=== PATIENT | male | born 1985 | race Caucasian/White ===

== ENCOUNTER 2016-09-14 12:32 | Observation (INO) | payer MEDICAID, SELFPAY ==
[2016-09-14 12:41] VITALS: BMI 27.1
[2016-09-14 13:08] VITALS: BP 131/78; PULSE 78; RESP 18; TEMP 36.8
--- NOTE | 2016-09-14 13:15 | PCM.HP.STD ---
Problem List (1) Heroin abuse Status: Chronic (2) Hepatitis C Status: Chronic Qualifiers: Viral hepatitis chronicity: unspecified Hepatic coma status: without hepatic coma Qualified Code(s): B19.20 - Unspecified viral hepatitis C without hepatic coma History of Present Illness Date of Admission: 09/14/16 Chief Complaint: Acute opiate withdrawal The patient is a 31 y/o M w/ PMHx: Polysubstance abuse, most recently notes transitioned to only Heroine IV with prior Suboxone program enrollment; however, he relapsed, last dose 09/07/16 (prior other usages, including cocaine), Hepatitis C who presents to the [facility] on 09/14/16 w/ noted opiate withdrawal onset starting this AM following last dose evening prior at 8 pm with abdominal pain/cramping, generalized body aches and pains, rhinorrhea, piloerection, fatigue, restless leg, sweating, yawning. Patient interested in attaining clean status. He notes normal usage is 0.5 gm per day heroin usage. He additionally notes he had appt for upcoming root canal and was supposed to be taking amoxicillin but had not filled his rx. Discussed and advised pushing intervention back if possible. Past Medical History Past Medical History (Chronic Problems): Chronic Problems Hepatitis C (Chronic) Heroin abuse (Chronic) Allergies codeine Allergy (Verified 09/14/16 12:56) Hives Home Medications: Ambulatory Orders Medication Instructions Recorded No Known/Unobtainable [No Known 09/14/16 Home Medications] Surgical History: no surgical history Psychiatric History: No pertinent psych hx Lives: Spouse/ Significant Other Smoking Status: Never smoker Tobacco Use: Non-smoker Alcohol: None Drugs: Heroin - *Family History Maternal History Items: No pertinent history Paternal History Items: No pertinent history Review of Systems Constitutional: Reports: Anorexia, Malaise, Weakness, Fatigue. Denies: Chills, Fever, Weight Change HEENT: Denies: Head Aches, Sinus Congestion, Sinus Drainage Cardiovascular: Denies: Chest Pain, Palpitations Respiratory: Denies: Cough, Shortness of breath at rest, Sputum production Gastrointestinal: Reports: Abdominal Pain, Nausea. Denies: Vomiting Genitourinary: Denies: Dysuria Musculoskeletal: Reports: Back Pain, Leg Pain, Muscle pain, Neck Pain, Shoulder Pain. Denies: Joint Pain, Joint Tenderness Skin: Denies: Rash, Wounds Neurological: Denies: Numbness, Tingling, Focal weakness Psychiatric: Denies: Anxiety, Depression, Homicidal Ideations, Suicidal Ideations Hematologic/ Lymphatic: Denies: Easy Bruising, Easy Bleeding VTE Information - Inpt Only VTE Present on Admission: No VTE Mechan Device Prophylaxis: SCD's VTE Pharm Prophylaxis ordered?: No Reason prophylaxis not ordered:: Treatment Not Indicated Subjective: Seated upright in bed, currently symptomatic from withdrawal. Objective: Physical Examination: General: awake, alert, oriented x 3 and cooperative, seated upright in bed, mildly agitated. Skin: normal color, turgor, no icterus, cyanosis. HEENT: AT/NC, EOMI, PERRLA, dry MM, no carotid bruits or JVD noted. Lungs: CTA bilaterally, moderate effort, moderate decrease BL bases, no rales, ronchi or wheezing. Heart: Regular rate and rhythm; no gallop, rub audible. Abdomen: soft, mild generalized grimace w/ palpation, ND, hyperactive BS, + HM. Extremities: no cyanosis, clubbing, or edema. Neurological: patient awake, alert, oriented x 3; cognitive function intact; pupils equally reactive to light and accomodation; cranial nerves II-XII grossly normal, moving all 4 extremities, no focal deficits, strength mildly globally decreased secondary to acute withdrawal presentation. Psychiatric: affect appears mildly agitated, no acute evidence of depressive or anxiety feelings. - Physical Exam Vital Signs Temp Pulse Resp BP Pulse Ox 98.3 F 78 18 131/78 09/14/16 13:08 09/14/16 13:08 09/14/16 13:08 09/14/16 13:08 Weight: 210 lb 15.718 oz Body Mass Index (BMI) 27.1 Assessment/Plan The patient is a 31 y/o M w/ PMHx: Polysubstance abuse, most recently notes transitioned to only Heroine IV with prior Suboxone program enrollment; however, he relapsed, last dose 09/07/16 (prior other usages, including cocaine), Hepatitis C who presents to the [facility] on 09/14/16 w/ acute opiate withdrawal onset. (1) Acute Opiate Withdrawal: Will admit to [place], obtain routine labs including CBC, CMP, urine for drug screen, urinalysis, serum lipase, routine EKG and will initiate and continue on [facility] service protocol with tapering course of Subutex, as needed Seroquel, Librium, Sinemet, Catapres, Bentyl, Vistaril, IV fluids, IV antiemetics, Tylenol as needed for pain. Once patient clinically improved and completion of taper nearing will plan [facility] assistance for transition to next level of rehabilitation care. (2) Hepatitis C: Notes recent dx 2017, unclear if additional, will obtain Hepatitis C panel to assure no co-infection. Discussed that patient is not a candidate for hep C treatment currently as needs to be clean, sober x 6 months w/ documented attendance NA or AA meetings, counseling and ongoing negative drug screens. Once appropriate GI, ID to initiate. HIV requested also, pending. (3) DVT Prophylaxis: SCDs, low risk, ambulation.
--- NOTE | 2016-09-14 13:21 | EKG12_ITS ---
Test Reason : Blood Pressure : / mmHG Vent. Rate : 069 BPM Atrial Rate : 069 BPM P-R Int : 168 ms QRS Dur : 094 ms QT Int : 404 ms P-R-T Axes : 042 026 039 degrees QTc Int : 432 ms Normal sinus rhythm with sinus arrhythmia Normal ECG Confirmed by TRACI HERRERA, FRANCISCO ([id number]), design editor STEVIE STANLEY ([id number]) on 09/28/2016 1:24:24 PM Referred By: LEEROY Confirmed By:FRANCISCO AVILES MD
--- NOTE | 2016-09-14 13:28 | HP.PCM_ITS ---
Problem List (1) Heroin abuse Status: Chronic (2) Hepatitis C Status: Chronic Qualifiers: Viral hepatitis chronicity: unspecified Hepatic coma status: without hepatic coma Qualified Code(s): B19.20 - Unspecified viral hepatitis C without hepatic coma History of Present Illness Date of Admission: 09/14/16 Chief Complaint: Acute opiate withdrawal The patient is a 31 y/o M w/ PMHx: Polysubstance abuse, most recently notes transitioned to only Heroine IV with prior Suboxone program enrollment; however , he relapsed, last dose 09/07/16 (prior other usages, including cocaine), Hepatitis C who presents to the [facility] on 09/14/16 w/ noted opiate withdrawal onset starting this AM following last dose evening prior at 8 pm with abdominal pain/ cramping, generalized body aches and pains, rhinorrhea, piloerection, fatigue, restless leg, sweating, yawning. Patient interested in attaining clean status. He notes normal usage is 0.5 gm per day heroin usage. He additionally notes he had appt for upcoming root canal and was supposed to be taking amoxicillin but had not filled his rx. Discussed and advised pushing intervention back if possible. Past Medical History Past Medical History (Chronic Problems): Chronic Problems Hepatitis C (Chronic) Heroin abuse (Chronic) Allergies codeine Allergy (Verified 09/14/16 12:56) Hives Home Medications: Ambulatory Orders Medication Instructions Recorded No Known/Unobtainable [No Known 09/14/16 Home Medications] Surgical History: no surgical history Psychiatric History: No pertinent psych hx Lives: Spouse/ Significant Other Smoking Status: Never smoker Tobacco Use: Non-smoker Alcohol: None Drugs: Heroin - *Family History Maternal History Items: No pertinent history Paternal History Items: No pertinent history Review of Systems Constitutional: Reports: Anorexia, Malaise, Weakness, Fatigue. Denies: Chills, Fever, Weight Change HEENT: Denies: Head Aches, Sinus Congestion, Sinus Drainage Cardiovascular: Denies: Chest Pain, Palpitations Respiratory: Denies: Cough, Shortness of breath at rest, Sputum production Gastrointestinal: Reports: Abdominal Pain, Nausea. Denies: Vomiting Genitourinary: Denies: Dysuria Musculoskeletal: Reports: Back Pain, Leg Pain, Muscle pain, Neck Pain, Shoulder Pain. Denies: Joint Pain, Joint Tenderness Skin: Denies: Rash, Wounds Neurological: Denies: Numbness, Tingling, Focal weakness Psychiatric: Denies: Anxiety, Depression, Homicidal Ideations, Suicidal Ideations Hematologic/ Lymphatic: Denies: Easy Bruising, Easy Bleeding VTE Information - Inpt Only VTE Present on Admission: No VTE Mechan Device Prophylaxis: SCD's VTE Pharm Prophylaxis ordered?: No Reason prophylaxis not ordered:: Treatment Not Indicated Subjective: Seated upright in bed, currently symptomatic from withdrawal. Objective: Physical Examination: General: awake, alert, oriented x 3 and cooperative, seated upright in bed, mildly agitated. Skin: normal color, turgor, no icterus, cyanosis. HEENT: AT/NC, EOMI, PERRLA, dry MM, no carotid bruits or JVD noted. Lungs: CTA bilaterally, moderate effort, moderate decrease BL bases, no rales, ronchi or wheezing. Heart: Regular rate and rhythm; no gallop, rub audible. Abdomen: soft, mild generalized grimace w/ palpation, ND, hyperactive BS, + HM. Extremities: no cyanosis, clubbing, or edema. Neurological: patient awake, alert, oriented x 3; cognitive function intact; pupils equally reactive to light and accomodation; cranial nerves II-XII grossly normal, moving all 4 extremities, no focal deficits, strength mildly globally decreased secondary to acute withdrawal presentation. Psychiatric: affect appears mildly agitated, no acute evidence of depressive or anxiety feelings. - Physical Exam Vital Signs Temp Pulse Resp BP Pulse Ox 98.3 F 78 18 131/78 09/14/16 13:08 09/14/16 13:08 09/14/16 13:08 09/14/16 13:08 Weight: 210 lb 15.718 oz Body Mass Index (BMI) 27.1 Assessment/Plan The patient is a 31 y/o M w/ PMHx: Polysubstance abuse, most recently notes transitioned to only Heroine IV with prior Suboxone program enrollment; however , he relapsed, last dose 09/07/16 (prior other usages, including cocaine), Hepatitis C who presents to the [facility] on 09/14/16 w/ acute opiate withdrawal onset. (1) Acute Opiate Withdrawal: Will admit to [place], obtain routine labs including CBC , CMP, urine for drug screen, urinalysis, serum lipase, routine EKG and will initiate and continue on [facility] service protocol with tapering course of Subutex, as needed Seroquel, Librium, Sinemet, Catapres, Bentyl, Vistaril, IV fluids, IV antiemetics, Tylenol as needed for pain. Once patient clinically improved and completion of taper nearing will plan [facility] assistance for transition to next level of rehabilitation care. (2) Hepatitis C: Notes recent dx 2017, unclear if additional, will obtain Hepatitis C panel to assure no co-infection. Discussed that patient is not a candidate for hep C treatment currently as needs to be clean, sober x 6 months w / documented attendance NA or AA meetings, counseling and ongoing negative drug screens. Once appropriate GI, ID to initiate. HIV requested also, pending. (3) DVT Prophylaxis: SCDs, low risk, ambulation.
[2016-09-14] MEDS: Buprenorphine HCl 2 MG TAB.SUBL SL ×2 (13:48→22:02)
[2016-09-14] MEDS: cloNIDine HCl 0.1 MG Tablet 0.2 MG PO (13:48)
[2016-09-14] MEDS: Ibuprofen 400 MG Tablet 800 MG PO (13:51)
[2016-09-14] MEDS: 0.9% Normal Saline 1,000 ML 125 ML IV (13:52)
[2016-09-14 14:00] VITALS: BP 131/78; PULSE 78; RESP 18; TEMP 36.8
[2016-09-14] MEDS: chlordiazePOXIDE 25 MG Capsule PO ×2 (14:14→22:02)
[2016-09-14 14:22] LABS: Absolute Lymphocyte Count 2.72 X10^3/ul (0.83-4.51); Absolute Neutrophil Count 2.8 X10^3/uL (2.0-7.7); Basophil# 0.05 X10^3/uL; Basophil% 0.8 % (0-1); Eosinophil# 0.28 X10^3/uL; Eosinophils% 4.5 % (0-5); Hematocrit 37.2 % (40-54); Hemoglobin 12.9 g/dl (13.0-16.5); Lymphocyte # 2.72 X10^3/ul (4.0); Lymphocyte % 43.7 % (19-41); Mean Corp Hgb Conc 34.7 g/gl (32-36); Mean Corpuscular Hgb 30.4 pg (27.0-32.0); Mean Corpuscular Volume 87.5 fL (80-94); Mean Platelet Vol. 10.2 fl (6.2-12.0); Monocyte# 0.36 X10^3/uL; Monocyte% 5.8 % (0-10); Neutrophil # 2.81 X10^3/uL (2.7-7.7); Platelet Count 201 K/mm3 (150-450); RBC Distribution Width CV 12.6 % (11.6-14.6); RBC Distribution Width SD 39.1 fl (35.1-43.9); Red Blood Count 4.25 M/mm3 (4.6-6.2); White Blood Count 6.2 K/mm3 (4.4-11.0)
[2016-09-14 14:28] LABS: Prothrombin Time (Protime)PT. 12.9 SECONDS (11.7-14.9)
[2016-09-14 14:34] LABS: AST(SGOT) 15 U/L (15-37); Alanine Aminotransfer ALT/SGPT 21 U/L (12-78); Albumin, Serum 3.9 g/dL (3.4-5.0); Alkaline Phosphatase 67 U/L (45-117); Anion Gap 3 (5-15); BUN 19 mg/dL (7-18); BUN/Creat Ratio 20.3 RATIO (10-20); Calcium,Total 9.1 mg/dL (8.5-10.1); Chloride 104 mmol/L (98-107); Creatinine, Serum 0.93 mg/dL (0.70-1.30); EST Glomerular Filtration Rate 99 mL/min (>60); Est Glom Filt Rate - Afr Amer 119 mL/min (>60); Estimated Creatinine Clearance 131.35 ml/min; Globulin 3.8 g/dL (2.3-3.5); Glucose 85 mg/dL (70-110); Lipase 114 U/L (73-393); Potassium 4.1 mmol/L (3.5-5.1); Protein, Total 7.7 g/dL (6.4-8.2); Sodium Level 138 mmol/L (136-145)
[2016-09-14 14:38] LABS: Alcohol, Blood (Medical)-Serum < 3.0 mg/dL
[2016-09-14 14:43] LABS: POSITIVE COUNT NO; POSITIVE DIFFERENTIAL NO; POSITIVE MORPHOLOGY NO
[2016-09-14 16:31] LABS: Bacteria 0 SEEN /hpf (None Seen); Squamous Epithelial Cells - UA 0 SEEN /hpf (0-5); White Blood Cells 0 SEEN /hpf (0-5)
[2016-09-14 16:40] LABS: Color, Urine Yellow (Yellow); Glucose, Dipstick Normal (Normal); Ketone-Dipstick Negative (Negative); Leukocyte Esterase-Dipstick Negative /ul (Negative); Nitrite-Dipstick Negative (Negative); Occult Blood-Urine Negative /ul (Negative); Protein-Dipstick 15 mg/dl (Negative); Specific Gravity, Urine 1.025 (1.002-1.030); Urine Bilirubin Dipstick Negative (Negative); Urine Clarity Clear (Clear); Urine Urobilinogen Normal (Normal)
[2016-09-14 17:16] LABS: Mucous, Urine 1+ /hpf (<or=2+); Red Blood Cells-Urine 0-5 SEEN /hpf (0-5)
[2016-09-14] MEDS: Ondansetron ODT 4 MG Tablet PO (17:27)
[2016-09-14] MEDS: Mag Hydrox/Al Hydrox/Simeth 30 ML UDC PO (17:34)
[2016-09-14 17:39] VITALS: BP 133/86; PULSE 68; RESP 16; TEMP 36.6
[2016-09-14] MEDS: cloNIDine HCl 0.1 MG Tablet PO (22:02)
[2016-09-14] MEDS: traZODone 50 MG Tablet PO (22:02)
[2016-09-14 22:04] VITALS: BP 115/80; PULSE 78; RESP 16; TEMP 36.6
[2016-09-15 01:20] LABS: Amphetamine Urine VISTA NEGATIVE (<1000 ng/mL); Barbiturate Urine VISTA NEGATIVE (< 200 ng/mL); Benzodiazepine Urine VISTA POSITIVE (< 200 ng/mL); Cocaine Urine VISTA NEGATIVE (< 300 ng/mL); Ecstacy Urine VISTA NEGATIVE (< 500 ng/mL); Methadone Urine VISTA NEGATIVE (< 300 ng/mL); PCP Urine VISTA NEGATIVE (< 25 ng/mL); THC Urine VISTA NEGATIVE (< 50 ng/mL); Vista UDS pH Range 8
[2016-09-15 02:00] VITALS: BP 119/86; PULSE 92; RESP 16; TEMP 36.3
[2016-09-15 06:00] VITALS: BP 110/74; PULSE 65; RESP 16; TEMP 36.4
[2016-09-15 06:08] LABS: HEPATITIS B SURFACE AG Negative (Negative); Hepatitis A AB, Total Negative (Negative); Hepatitis A IgM Antibody Negative (Negative); Hepatitis B Core AB IgM Negative (Negative); Hepatitis B Core Ab Total Positive (Negative); Hepatitis C Ab >11.0 s/co ratio (0.0-0.9)
[2016-09-15] MEDS: Buprenorphine HCl 2 MG TAB.SUBL SL ×3 (06:09→21:44)
[2016-09-15] MEDS: cloNIDine HCl 0.1 MG Tablet PO (06:09)
[2016-09-15] MEDS: QUEtiapine 25 MG Tablet PO (06:09)
--- NOTE | 2016-09-15 07:36 | PCM.PN.HOSP ---
Subjective: Patient with no acute events overnight per self and per nursing report. He notes that withdrawal symptoms have markedly improved with initiation of Subutex regimen. Toni pending hepatitis panel and HIV panel to which patient notes understanding. patient denies fevers, chills, nausea, emesis, abdominal pain, chest pain or dyspnea. Objective: Physical Examination: General: awake, alert, oriented x 3 and cooperative, seated upright in bed, calm appearing, notes withdrawal sxs controlled. Skin: normal color, turgor, no icterus, cyanosis. HEENT: AT/NC, EOMI, PERRLA, improved MMM. Lungs: CTA bilaterally, moderate effort, moderate decrease BL bases, no rales, ronchi or wheezing. Heart: Regular rate and rhythm; no gallop, rub audible. Abdomen: soft, NTTP, ND, normal BS. Extremities: no cyanosis, clubbing, or edema. Neurological: patient awake, alert, oriented x 3; cognitive function intact; pupils equally reactive to light and accomodation; cranial nerves II-XII grossly normal, moving all 4 extremities, no focal deficits, strength improved, still mildly globally decreased secondary to acute withdrawal presentation. Psychiatric: affect appears calm, no acute evidence of depressive or anxiety feelings. Vitals/I&O's: Vital Signs Temp Pulse Resp BP Pulse Ox 97.5 F 65 16 110/74 09/15/16 06:00 09/15/16 06:00 09/15/16 06:00 09/15/16 06:00 Oxygen Delivery Method Room Air Weight: 210 lb 15.718 oz Body Mass Index (BMI) 27.1 Intake and Output for Last 24 Hours 09/13/16 09/14/16 09/15/16 23:59 23:59 23:59 Intake Total 462 Balance 462 Laboratory Results 09/14/16 14:00: Hepatitis A IgM Ab Pending, Hepatitis A Ab Total Pending, Hep Bs Antigen Pending, Hep B Core Total Ab Pending, Hep B Core IgM Ab Pending, Hepatitis C Comment Pending 09/14/16 14:00: WBC 6.2, RBC 4.25 L, Hgb 12.9 L, Hct 37.2 L, MCV 87.5, MCH 30.4, MCHC 34.7, RDW 12.6, RDW Differential 39.1, Plt Count 201, MPV 10.2, Immature Gran % (Auto) 0.200, Neut % (Auto) 45.0 L, Lymph % (Auto) 43.7 H, [place] % (Auto) 5.8, Eos % (Auto) 4.5, Baso % (Auto) 0.8, Absolute Neuts (auto) 2.8, Absolute Lymphs (auto) 2.72, Total Counted Not Reportable 09/14/16 14:00: PT 12.9, INR 1.0 09/14/16 14:00: Sodium 138, Potassium 4.1, Chloride 104, Carbon Dioxide 31.0, Anion Gap 3 L, BUN 19 H, Creatinine 0.93, Estim Creat Clear Calc 131.35, Est GFR (MDRD) Af Amer 119, Est GFR (MDRD) Non-Af 99, BUN/Creatinine Ratio 20.3 H, Glucose 85, Calcium 9.1, Total Bilirubin 0.50, AST 15, ALT 21, Alkaline Phosphatase 67, Total Protein 7.7, Albumin 3.9, Globulin 3.8 H, Albumin/Globulin Ratio 1.0, Lipase 114 09/14/16 14:00: Ethyl Alcohol < 3.0 09/14/16 14:15: Urine Color Yellow, Urine Clarity Clear, Urine pH 5.0, Ur Specific [place] 1.025, Urine Protein 15 H, Urine Glucose (UA) Normal, Urine Ketones Negative, Urine Occult Blood Negative, Urine Nitrite Negative, Urine Bilirubin Negative, Urine Urobilinogen Normal, Ur Leukocyte Esterase Negative, Urine RBC 0-5 SEEN, Urine WBC 0 SEEN, Ur Squamous Epith Cells 0 SEEN, Urine Bacteria 0 SEEN, Urine Mucus 1+ 09/15/16 01:00: Urine Opiates Screen POSITIVE H, Urine Methadone Screen NEGATIVE, Ur Barbiturates Screen NEGATIVE, Ur Phencyclidine Scrn NEGATIVE, Ur Amphetamines Screen NEGATIVE, U Methamphetamin-MDMA NEGATIVE, U Benzodiazepines Scrn POSITIVE H, Urine Cocaine Screen NEGATIVE, U Cannabinoids Screen NEGATIVE, Ur Drug Screen Comment Current Medications Acetaminophen (Tylenol) 650 mg PO Q4H PRN PRN PRN Reason: Temp>99.1F Al Hydroxide/Mg Hydroxide (Mylanta Ii) 30 ml PO Q6H PRN PRN PRN Reason: dyspesia Last Admin: 09/14/16 17:34 Dose: 30 ml Bisacodyl (Dulcolax) 10 mg RECTAL DAILY PRN PRN Reason: Constipation Buprenorphine HCl (Buprenorphine Hcl) 4 mg SL Q8H [place] PRN Reason: Taper Stop: 09/17/16 17:59 Last Admin: 09/15/16 06:09 Dose: 4 mg Carbidopa/Levodopa (Sinemet) 1 tablet PO Q8H PRN PRN PRN Reason: RESTLESSNESS Chlordiazepoxide (Librium) 25 mg PO Q6H PRN PRN PRN Reason: Mod-Sev Anxiety (score 2-3/3) Last Admin: 09/14/16 22:02 Dose: 25 mg Clonidine (Catapres) 0.1 mg PO Q2H PRN PRN Reason: Hot/Cold Sweats or Anxiety Last Admin: 09/15/16 06:09 Dose: 0.1 mg Dicyclomine HCl (Bentyl) 20 mg PO Q6H PRN PRN PRN Reason: Abdomnial Discomfort Folic Acid (Folic Acid) 1 mg PO DAILY@0800 [facility] Hydroxyzine Pamoate (Vistaril) 50 mg PO Q6H PRN PRN PRN Reason: Mild Anxiety (score 1/3) Last Admin: 09/14/16 17:28 Dose: 50 mg Ibuprofen (Motrin) 800 mg PO Q8H PRN PRN PRN Reason: Mild-Moderate Pain (1-5/10) Last Admin: 09/14/16 13:51 Dose: 800 mg Loperamide HCl (Imodium) 2 - 4 mg PO UD PRN PRN Reason: LOOSE STOOLS Methocarbamol (Methocarbamol) 750 mg PO 4X/DAY PRN PRN Reason: Muscle Aches Multivitamins/Minerals (Multivitamin With Minerals) 1 tablet PO DAILYCM [facility] Ondansetron HCl (Zofran Odt) 4 mg PO Q6H PRN PRN PRN Reason: NAUSEA Last Admin: 09/14/16 17:27 Dose: 4 mg Quetiapine Fumarate (Seroquel) 25 mg PO Q6H PRN PRN PRN Reason: Moderate Anxiety (score 2/3) Last Admin: 09/15/16 06:09 Dose: 25 mg Senna (Senokot) 1 tablet PO QHS PRN PRN Reason: Constipation Sodium Chloride () 5 - 30 ml IV UD PRN PRN Reason: SALINE FLUSH Thiamine HCl (Vitamin B1) 100 mg PO DAILYCM [facility] Trazodone HCl (Desyrel) 50 mg PO QHS [facility] Last Admin: 09/14/16 22:02 Dose: 50 mg Assessment/Plan The patient is a 31 y/o M w/ PMHx: Polysubstance abuse, most recently notes transitioned to only Heroine IV with prior Suboxone program enrollment; however, he relapsed, last dose 09/07/16 (prior other usages, including cocaine), Hepatitis C who presents to the [facility] on 09/14/16 w/ acute opiate withdrawal onset. (1) Acute Opiate Withdrawal: Admitted to [place], obtained routine labs and EKG given prior cocaine usage admission, UDS w/ + opiates and BZD noted, initiated on [facility] service protocol with tapering course of Subutex, as needed Seroquel, Librium, Sinemet, Catapres, Bentyl, Vistaril, IV fluids x 1 L NS, IV antiemetics, Tylenol as needed for pain. Once patient clinically improved and completion of taper nearing will plan [facility] assistance for transition to next level of rehabilitation care. (2) Hepatitis C: Notes recent dx 2017, unclear if additional, hepatitis panel and HIV pending to assure no co-infection. Discussed that patient is not a candidate for hep C treatment currently as needs to be clean, sober x 6 months w/ documented attendance NA or AA meetings, counseling and ongoing negative drug screens. Once appropriate GI, ID to initiate outpatient. (3) DVT Prophylaxis: SCDs, low risk, ambulation.
--- NOTE | 2016-09-15 07:39 | PN_ITS ---
Subjective: Patient with no acute events overnight per self and per nursing report. He notes that withdrawal symptoms have markedly improved with initiation of Subutex regimen. Toni pending hepatitis panel and HIV panel to which patient notes understanding. patient denies fevers, chills, nausea, emesis, abdominal pain, chest pain or dyspnea. Objective: Physical Examination: General: awake, alert, oriented x 3 and cooperative, seated upright in bed, calm appearing, notes withdrawal sxs controlled. Skin: normal color, turgor, no icterus, cyanosis. HEENT: AT/NC, EOMI, PERRLA, improved MMM. Lungs: CTA bilaterally, moderate effort, moderate decrease BL bases, no rales, ronchi or wheezing. Heart: Regular rate and rhythm; no gallop, rub audible. Abdomen: soft, NTTP, ND, normal BS. Extremities: no cyanosis, clubbing, or edema. Neurological: patient awake, alert, oriented x 3; cognitive function intact; pupils equally reactive to light and accomodation; cranial nerves II-XII grossly normal, moving all 4 extremities, no focal deficits, strength improved, still mildly globally decreased secondary to acute withdrawal presentation. Psychiatric: affect appears calm, no acute evidence of depressive or anxiety feelings. Vitals/I&O's: Vital Signs Temp Pulse Resp BP Pulse Ox 97.5 F 65 16 110/74 09/15/16 06:00 09/15/16 06:00 09/15/16 06:00 09/15/16 06:00 Oxygen Delivery Method Room Air Weight: 210 lb 15.718 oz Body Mass Index (BMI) 27.1 Intake and Output for Last 24 Hours 09/13/16 09/14/16 09/15/16 23:59 23:59 23:59 Intake Total 462 Balance 462 Laboratory Results 09/14/16 14:00: Hepatitis A IgM Ab Pending, Hepatitis A Ab Total Pending, Hep Bs Antigen Pending, Hep B Core Total Ab Pending, Hep B Core IgM Ab Pending, Hepatitis C Comment Pending 09/14/16 14:00: WBC 6.2, RBC 4.25 L, Hgb 12.9 L, Hct 37.2 L, MCV 87.5, MCH 30.4 , MCHC 34.7, RDW 12.6, RDW Differential 39.1, Plt Count 201, MPV 10.2, Immature Gran % (Auto) 0.200, Neut % (Auto) 45.0 L, Lymph % (Auto) 43.7 H, [place] % (Auto) 5.8, Eos % (Auto) 4.5, Baso % (Auto) 0.8, Absolute Neuts (auto) 2.8, Absolute Lymphs (auto) 2.72, Total Counted Not Reportable 09/14/16 14:00: PT 12.9, INR 1.0 09/14/16 14:00: Sodium 138, Potassium 4.1, Chloride 104, Carbon Dioxide 31.0, Anion Gap 3 L, BUN 19 H, Creatinine 0.93, Estim Creat Clear Calc 131.35, Est GFR (MDRD) Af Amer 119, Est GFR (MDRD) Non-Af 99, BUN/Creatinine Ratio 20.3 H, Glucose 85, Calcium 9.1, Total Bilirubin 0.50, AST 15, ALT 21, Alkaline Phosphatase 67, Total Protein 7.7, Albumin 3.9, Globulin 3.8 H, Albumin/ Globulin Ratio 1.0, Lipase 114 09/14/16 14:00: Ethyl Alcohol < 3.0 09/14/16 14:15: Urine Color Yellow, Urine Clarity Clear, Urine pH 5.0, Ur Specific [place] 1.025, Urine Protein 15 H, Urine Glucose (UA) Normal, Urine Ketones Negative, Urine Occult Blood Negative, Urine Nitrite Negative, Urine Bilirubin Negative, Urine Urobilinogen Normal, Ur Leukocyte Esterase Negative, Urine RBC 0-5 SEEN, Urine WBC 0 SEEN, Ur Squamous Epith Cells 0 SEEN, Urine Bacteria 0 SEEN, Urine Mucus 1+ 09/15/16 01:00: Urine Opiates Screen POSITIVE H, Urine Methadone Screen NEGATIVE , Ur Barbiturates Screen NEGATIVE, Ur Phencyclidine Scrn NEGATIVE, Ur Amphetamines Screen NEGATIVE, U Methamphetamin-MDMA NEGATIVE, U Benzodiazepines Scrn POSITIVE H, Urine Cocaine Screen NEGATIVE, U Cannabinoids Screen NEGATIVE, Ur Drug Screen Comment Current Medications Acetaminophen (Tylenol) 650 mg PO Q4H PRN PRN PRN Reason: Temp>99.1F Al Hydroxide/Mg Hydroxide (Mylanta Ii) 30 ml PO Q6H PRN PRN PRN Reason: dyspesia Last Admin: 09/14/16 17:34 Dose: 30 ml Bisacodyl (Dulcolax) 10 mg RECTAL DAILY PRN PRN Reason: Constipation Buprenorphine HCl (Buprenorphine Hcl) 4 mg SL Q8H SH[facility]NA PRN Reason: Taper Stop: 09/17/16 17:59 Last Admin: 09/15/16 06:09 Dose: 4 mg Carbidopa/Levodopa (Sinemet) 1 tablet PO Q8H PRN PRN PRN Reason: RESTLESSNESS Chlordiazepoxide (Librium) 25 mg PO Q6H PRN PRN PRN Reason: Mod-Sev Anxiety (score 2-3/3) Last Admin: 09/14/16 22:02 Dose: 25 mg Clonidine (Catapres) 0.1 mg PO Q2H PRN PRN Reason: Hot/Cold Sweats or Anxiety Last Admin: 09/15/16 06:09 Dose: 0.1 mg Dicyclomine HCl (Bentyl) 20 mg PO Q6H PRN PRN PRN Reason: Abdomnial Discomfort Folic Acid (Folic Acid) 1 mg PO DAILY@0800 [facility] Hydroxyzine Pamoate (Vistaril) 50 mg PO Q6H PRN PRN PRN Reason: Mild Anxiety (score 1/3) Last Admin: 09/14/16 17:28 Dose: 50 mg Ibuprofen (Motrin) 800 mg PO Q8H PRN PRN PRN Reason: Mild-Moderate Pain (1-5/10) Last Admin: 09/14/16 13:51 Dose: 800 mg Loperamide HCl (Imodium) 2 - 4 mg PO UD PRN PRN Reason: LOOSE STOOLS Methocarbamol (Methocarbamol) 750 mg PO 4X/DAY PRN PRN Reason: Muscle Aches Multivitamins/Minerals (Multivitamin With Minerals) 1 tablet PO DAILYCM [facility] Ondansetron HCl (Zofran Odt) 4 mg PO Q6H PRN PRN PRN Reason: NAUSEA Last Admin: 09/14/16 17:27 Dose: 4 mg Quetiapine Fumarate (Seroquel) 25 mg PO Q6H PRN PRN PRN Reason: Moderate Anxiety (score 2/3) Last Admin: 09/15/16 06:09 Dose: 25 mg Senna (Senokot) 1 tablet PO QHS PRN PRN Reason: Constipation Sodium Chloride () 5 - 30 ml IV UD PRN PRN Reason: SALINE FLUSH Thiamine HCl (Vitamin B1) 100 mg PO DAILYCM [facility] Trazodone HCl (Desyrel) 50 mg PO QHS [facility] Last Admin: 09/14/16 22:02 Dose: 50 mg Assessment/Plan The patient is a 31 y/o M w/ PMHx: Polysubstance abuse, most recently notes transitioned to only Heroine IV with prior Suboxone program enrollment; however , he relapsed, last dose 09/07/16 (prior other usages, including cocaine), Hepatitis C who presents to the [facility] on 09/14/16 w/ acute opiate withdrawal onset. (1) Acute Opiate Withdrawal: Admitted to [place], obtained routine labs and EKG given prior cocaine usage admission, UDS w/ + opiates and BZD noted, initiated on [facility] service protocol with tapering course of Subutex, as needed Seroquel, Librium, Sinemet, Catapres, Bentyl, Vistaril, IV fluids x 1 L NS, IV antiemetics, Tylenol as needed for pain. Once patient clinically improved and completion of taper nearing will plan [facility] assistance for transition to next level of rehabilitation care. (2) Hepatitis C: Notes recent dx 2017, unclear if additional, hepatitis panel and HIV pending to assure no co-infection. Discussed that patient is not a candidate for hep C treatment currently as needs to be clean, sober x 6 months w / documented attendance NA or AA meetings, counseling and ongoing negative drug screens. Once appropriate GI, ID to initiate outpatient. (3) DVT Prophylaxis: SCDs, low risk, ambulation.
[2016-09-15 09:17] VITALS: BP 100/56; PULSE 77; RESP 18; TEMP 36.6
[2016-09-15] MEDS: Multivitamins,Ther W-Minerals Tablet 1 TABLET PO (09:21)
[2016-09-15] MEDS: Folic Acid 1 MG Tablet PO (09:21)
[2016-09-15] MEDS: Thiamine Hydrochloride 100 MG Tablet PO (09:22)
[2016-09-15] MEDS: Carbidopa/Levodopa 25/100 Tablet PO (09:26)
[2016-09-15] MEDS: chlordiazePOXIDE 25 MG Capsule PO (09:26)
[2016-09-15 10:45] LABS: Hep B Surface Antibodies Non Reactive (.)
[2016-09-15 14:12] VITALS: BP 113/67; PULSE 92; RESP 18; TEMP 36.6
[2016-09-15] MEDS: Loperamide 2 MG Capsule PO (14:18)
[2016-09-15] MEDS: Ondansetron ODT 4 MG Tablet PO (14:19)
[2016-09-15] MEDS: Dicyclomine 10 MG Capsule 20 MG PO (14:19)
--- NOTE | 2016-09-15 16:30 | CHAPLAIN ---
patient is resting but still awake; he opens his eyes but does not keep them opened; pt reports that he is doing fine and that he does not feel sick; he answers my questions and is polite but does not continue conversation at this time; I affirm my role of support and commend him for getting help; I offer to be available for him as needed; pt says that he appreciates the offer and the visit
[2016-09-15 17:23] VITALS: BP 110/62; PULSE 72; RESP 16; TEMP 36.4
[2016-09-15 20:36] VITALS: BP 116/74; PULSE 55; RESP 16; TEMP 36.7
[2016-09-15] MEDS: traZODone 50 MG Tablet PO (21:44)
[2016-09-16 05:49] VITALS: BP 122/81; PULSE 67; RESP 18; TEMP 36.8
[2016-09-16] MEDS: Loperamide 2 MG Capsule PO ×2 (05:54→20:56)
[2016-09-16] MEDS: Buprenorphine HCl 2 MG TAB.SUBL SL ×2 (05:54→17:45)
--- NOTE | 2016-09-16 07:19 | PCM.PN.HOSP ---
Subjective: Patient overnight with no acute complaints except noted did not sleep well and woke up several times despite as needed nightly trazodone. Otherwise, patient notes withdrawal symptoms are currently controlled with regimen. Remains eager to maintain clean status. Toni recent hepatitis panel and plan for additional workup to assess for hepatitis B infection as well as confirmed hepatitis C infection. Did discuss that HIV panel is pending. Patient is interested in establishing with primary care physician and did request that nurse give him information and encourage patient to follow-up especially in light of hepatitis infection. Patient denies fevers, chills, nausea, emesis, abdominal pain, chest pain or dyspnea. Objective: Physical Examination: General: awake, alert, oriented x 3 and cooperative, seated upright in bed, NAD. Skin: normal color, turgor, no icterus, cyanosis, all infection regions well appearing, non-infected appearing. HEENT: AT/NC, EOMI, PERRLA, MMM. Lungs: CTA bilaterally, moderate effort, moderate decrease BL bases, no rales, ronchi or wheezing. Heart: Regular rate and rhythm; no gallop, rub audible. Abdomen: soft, NTTP, ND, normal BS. Extremities: no cyanosis, clubbing, or edema. Neurological: patient awake, alert, oriented x 3; cognitive function intact; pupils equally reactive to light and accomodation; cranial nerves II-XII grossly normal, moving all 4 extremities, no focal deficits, strength improved, mildly globally decreased secondary to acute withdrawal presentation. Psychiatric: affect appears normal, no acute evidence of depressive or anxiety feelings. Vitals/I&O's: Vital Signs Temp Pulse Resp BP Pulse Ox 98.2 F 67 18 122/81 09/16/16 05:49 09/16/16 05:49 09/16/16 05:49 09/16/16 05:49 Oxygen Delivery Method Room Air Weight: 210 lb 15.718 oz Body Mass Index (BMI) 27.1 Intake and Output for Last 24 Hours 09/14/16 09/15/16 09/16/16 23:59 23:59 23:59 Intake Total 1342 620 Balance 1342 620 Laboratory Results 09/14/16 14:00: Hepatitis A IgM Ab Negative, Hepatitis A Ab Total Negative, Hep Bs Antigen Negative, Hep B Core Total Ab Positive H, Hep B Core IgM Ab Negative, Hepatitis C Ab Confirm >11.0 H, Hepatitis C Comment Not Reportable 09/15/16 08:15: HIV 1&2 Ag/Ab, 4th Gen Pending Current Medications Acetaminophen (Tylenol) 650 mg PO Q4H PRN PRN PRN Reason: Temp>99.1F Al Hydroxide/Mg Hydroxide (Mylanta Ii) 30 ml PO Q6H PRN PRN PRN Reason: dyspesia Last Admin: 09/14/16 17:34 Dose: 30 ml Bisacodyl (Dulcolax) 10 mg RECTAL DAILY PRN PRN Reason: Constipation Buprenorphine HCl (Buprenorphine Hcl) 2 mg SL Q12H [facility] PRN Reason: Taper Stop: 09/17/16 17:59 Last Admin: 09/16/16 05:54 Dose: 2 mg Carbidopa/Levodopa (Sinemet) 1 tablet PO Q8H PRN PRN PRN Reason: RESTLESSNESS Last Admin: 09/15/16 09:26 Dose: 1 tablet Chlordiazepoxide (Librium) 25 mg PO Q6H PRN PRN PRN Reason: Mod-Sev Anxiety (score 2-3/3) Last Admin: 09/15/16 09:26 Dose: 25 mg Clonidine (Catapres) 0.1 mg PO Q2H PRN PRN Reason: Hot/Cold Sweats or Anxiety Last Admin: 09/15/16 06:09 Dose: 0.1 mg Dicyclomine HCl (Bentyl) 20 mg PO Q6H PRN PRN PRN Reason: Abdomnial Discomfort Last Admin: 09/15/16 14:19 Dose: 20 mg Folic Acid (Folic Acid) 1 mg PO DAILY@0800 [facility] Last Admin: 09/15/16 09:21 Dose: 1 mg Hydroxyzine Pamoate (Vistaril) 50 mg PO Q6H PRN PRN PRN Reason: Mild Anxiety (score 1/3) Last Admin: 09/15/16 14:19 Dose: 50 mg Ibuprofen (Motrin) 800 mg PO Q8H PRN PRN PRN Reason: Mild-Moderate Pain (1-5/10) Last Admin: 09/14/16 13:51 Dose: 800 mg Loperamide HCl (Imodium) 2 - 4 mg PO UD PRN PRN Reason: LOOSE STOOLS Last Admin: 09/16/16 05:54 Dose: 4 mg Methocarbamol (Methocarbamol) 750 mg PO 4X/DAY PRN PRN Reason: Muscle Aches Multivitamins/Minerals ([facility]) [facility] Last Admin: 09/15/16 09:21 Dose: 1 tablet Ondansetron HCl (Zofran Odt) 4 mg PO Q6H PRN PRN PRN Reason: NAUSEA Last Admin: 09/15/16 14:19 Dose: 4 mg Quetiapine Fumarate (Seroquel) 25 mg PO Q6H PRN PRN PRN Reason: Moderate Anxiety (score 2/3) Last Admin: 09/15/16 06:09 Dose: 25 mg Senna (Senokot) 1 tablet PO QHS PRN PRN Reason: Constipation Sodium Chloride () 5 - 30 ml IV UD PRN PRN Reason: SALINE FLUSH Thiamine HCl (Vitamin B1) [facility] Last Admin: 09/15/16 09:22 Dose: 100 mg Trazodone HCl (Desyrel) 50 mg PO QHS [facility] Last Admin: 09/15/16 21:44 Dose: 50 mg Assessment/Plan The patient is a 31 y/o M w/ PMHx: Polysubstance abuse, most recently notes transitioned to only Heroine IV with prior Suboxone program enrollment; however, he relapsed, last dose 09/07/16 (prior other usages, including cocaine), Hepatitis C who presents to the [facility] on 09/14/16 w/ acute opiate withdrawal onset. (1) Acute Opiate Withdrawal: Admitted to [place], obtained routine labs and EKG given prior cocaine usage admission, UDS w/ + opiates and BZD noted, initiated on [facility] service protocol with tapering course of Subutex, as needed Seroquel, Librium, Sinemet, Catapres, Bentyl, Vistaril, IV fluids x 1 L NS, IV antiemetics, Tylenol as needed for pain. Once patient clinically improved and completion of taper nearing will plan [facility] assistance for transition to next level of rehabilitation care. Last dose currently planned for 09/17/16 1700 with discharge following if appropriate. (2) Hepatitis C, B: Notes recent dx 2016, unclear if additional, hepatitis panel Hep B Core Total Ab and Hepatitis C Ab Confirmation >11. HIV still pending. Discussed that patient is not a candidate for hep C treatment currently as needs to be clean, sober x 6 months w/ documented attendance NA or AA meetings, counseling and ongoing negative drug screens. Once appropriate GI, ID to initiate outpatient. Will need to obtain Hepatitis B surface Ag and Surface Antibodies to assess whether he is possible chronically infected, infected but cleared infection. Fortunately his Se Antigen is negative which portends decreased contagiousness. (3) DVT Prophylaxis: SCDs, low risk, ambulation.
--- NOTE | 2016-09-16 07:26 | PN_ITS ---
Subjective: Patient overnight with no acute complaints except noted did not sleep well and woke up several times despite as needed nightly trazodone. Otherwise, patient notes withdrawal symptoms are currently controlled with regimen. Remains eager to maintain clean status. Toni recent hepatitis panel and plan for additional workup to assess for hepatitis B infection as well as confirmed hepatitis C infection. Did discuss that HIV panel is pending. Patient is interested in establishing with primary care physician and did request that nurse give him information and encourage patient to follow-up especially in light of hepatitis infection. Patient denies fevers, chills, nausea, emesis, abdominal pain, chest pain or dyspnea. Objective: Physical Examination: General: awake, alert, oriented x 3 and cooperative, seated upright in bed, NAD. Skin: normal color, turgor, no icterus, cyanosis, all infection regions well appearing, non-infected appearing. HEENT: AT/NC, EOMI, PERRLA, MMM. Lungs: CTA bilaterally, moderate effort, moderate decrease BL bases, no rales, ronchi or wheezing. Heart: Regular rate and rhythm; no gallop, rub audible. Abdomen: soft, NTTP, ND, normal BS. Extremities: no cyanosis, clubbing, or edema. Neurological: patient awake, alert, oriented x 3; cognitive function intact; pupils equally reactive to light and accomodation; cranial nerves II-XII grossly normal, moving all 4 extremities, no focal deficits, strength improved, mildly globally decreased secondary to acute withdrawal presentation. Psychiatric: affect appears normal, no acute evidence of depressive or anxiety feelings. Vitals/I&O's: Vital Signs Temp Pulse Resp BP Pulse Ox 98.2 F 67 18 122/81 09/16/16 05:49 09/16/16 05:49 09/16/16 05:49 09/16/16 05:49 Oxygen Delivery Method Room Air Weight: 210 lb 15.718 oz Body Mass Index (BMI) 27.1 Intake and Output for Last 24 Hours 09/14/16 09/15/16 09/16/16 23:59 23:59 23:59 Intake Total 1342 620 Balance 1342 620 Laboratory Results 09/14/16 14:00: Hepatitis A IgM Ab Negative, Hepatitis A Ab Total Negative, Hep Bs Antigen Negative, Hep B Core Total Ab Positive H, Hep B Core IgM Ab Negative , Hepatitis C Ab Confirm >11.0 H, Hepatitis C Comment Not Reportable 09/15/16 08:15: HIV 1&2 Ag/Ab, 4th Gen Pending Current Medications Acetaminophen (Tylenol) 650 mg PO Q4H PRN PRN PRN Reason: Temp>99.1F Al Hydroxide/Mg Hydroxide (Mylanta Ii) 30 ml PO Q6H PRN PRN PRN Reason: dyspesia Last Admin: 09/14/16 17:34 Dose: 30 ml Bisacodyl (Dulcolax) 10 mg RECTAL DAILY PRN PRN Reason: Constipation Buprenorphine HCl (Buprenorphine Hcl) 2 mg SL Q12H [facility] PRN Reason: Taper Stop: 09/17/16 17:59 Last Admin: 09/16/16 05:54 Dose: 2 mg Carbidopa/Levodopa (Sinemet) 1 tablet PO Q8H PRN PRN PRN Reason: RESTLESSNESS Last Admin: 09/15/16 09:26 Dose: 1 tablet Chlordiazepoxide (Librium) 25 mg PO Q6H PRN PRN PRN Reason: Mod-Sev Anxiety (score 2-3/3) Last Admin: 09/15/16 09:26 Dose: 25 mg Clonidine (Catapres) 0.1 mg PO Q2H PRN PRN Reason: Hot/Cold Sweats or Anxiety Last Admin: 09/15/16 06:09 Dose: 0.1 mg Dicyclomine HCl (Bentyl) 20 mg PO Q6H PRN PRN PRN Reason: Abdomnial Discomfort Last Admin: 09/15/16 14:19 Dose: 20 mg Folic Acid (Folic Acid) 1 mg PO DAILY@0800 [facility] Last Admin: 09/15/16 09:21 Dose: 1 mg Hydroxyzine Pamoate (Vistaril) 50 mg PO Q6H PRN PRN PRN Reason: Mild Anxiety (score 1/3) Last Admin: 09/15/16 14:19 Dose: 50 mg Ibuprofen (Motrin) 800 mg PO Q8H PRN PRN PRN Reason: Mild-Moderate Pain (1-5/10) Last Admin: 09/14/16 13:51 Dose: 800 mg Loperamide HCl (Imodium) 2 - 4 mg PO UD PRN PRN Reason: LOOSE STOOLS Last Admin: 09/16/16 05:54 Dose: 4 mg Methocarbamol (Methocarbamol) 750 mg PO 4X/DAY PRN PRN Reason: Muscle Aches Multivitamins/Minerals ([facility]) [facility] Last Admin: 09/15/16 09:21 Dose: 1 tablet Ondansetron HCl (Zofran Odt) 4 mg PO Q6H PRN PRN PRN Reason: NAUSEA Last Admin: 09/15/16 14:19 Dose: 4 mg Quetiapine Fumarate (Seroquel) 25 mg PO Q6H PRN PRN PRN Reason: Moderate Anxiety (score 2/3) Last Admin: 09/15/16 06:09 Dose: 25 mg Senna (Senokot) 1 tablet PO QHS PRN PRN Reason: Constipation Sodium Chloride () 5 - 30 ml IV UD PRN PRN Reason: SALINE FLUSH Thiamine [facility] ([facility]itamin B1) [facility] Last Admin: 09/15/16 09:22 Dose: 100 mg Trazodone HCl (Desyrel) 50 mg PO QHS [facility] Last Admin: 09/15/16 21:44 Dose: 50 mg Assessment/Plan The patient is a 31 y/o M w/ PMHx: Polysubstance abuse, most recently notes transitioned to only Heroine IV with prior Suboxone program enrollment; however , he relapsed, last dose 09/07/16 (prior other usages, including cocaine), Hepatitis C who presents to the [facility] on 09/14/16 w/ acute opiate withdrawal onset. (1) Acute Opiate Withdrawal: Admitted to [place], obtained routine labs and EKG given prior cocaine usage admission, UDS w/ + opiates and BZD noted, initiated on [facility] service protocol with tapering course of Subutex, as needed Seroquel, Librium, Sinemet, Catapres, Bentyl, Vistaril, IV fluids x 1 L NS, IV antiemetics, Tylenol as needed for pain. Once patient clinically improved and completion of taper nearing will plan [facility] assistance for transition to next level of rehabilitation care. Last dose currently planned for 09/17/16 1700 with discharge following if appropriate. (2) Hepatitis C, B: Notes recent dx 2016, unclear if additional, hepatitis panel Hep B Core Total Ab and Hepatitis C Ab Confirmation >11. HIV still pending. Discussed that patient is not a candidate for hep C treatment currently as needs to be clean, sober x 6 months w/ documented attendance NA or AA meetings, counseling and ongoing negative drug screens. Once appropriate GI, ID to initiate outpatient. Will need to obtain Hepatitis B surface Ag and Surface Antibodies to assess whether he is possible chronically infected, infected but cleared infection. Fortunately his Se Antigen is negative which portends decreased contagiousness. (3) DVT Prophylaxis: SCDs, low risk, ambulation.
[2016-09-16 08:00] VITALS: BP 115/78; PULSE 68; RESP 16; TEMP 36.8; O2SAT 99
[2016-09-16 08:05] VITALS: BP 115/78; PULSE 73; RESP 18; TEMP 36.8
[2016-09-16] MEDS: Carbidopa/Levodopa 25/100 Tablet PO (08:12)
[2016-09-16] MEDS: Ondansetron ODT 4 MG Tablet PO (08:12)
[2016-09-16] MEDS: Thiamine Hydrochloride 100 MG Tablet PO (08:12)
[2016-09-16] MEDS: cloNIDine HCl 0.1 MG Tablet PO (08:12)
[2016-09-16] MEDS: chlordiazePOXIDE 25 MG Capsule PO ×2 (08:12→20:57)
[2016-09-16] MEDS: Folic Acid 1 MG Tablet PO (08:12)
[2016-09-16] MEDS: Multivitamins,Ther W-Minerals Tablet 1 TABLET PO (08:12)
--- NOTE | 2016-09-16 12:09 | NURSING ---
When assessing patient this morning, patient c/o restless legs, nausea, sweating and anxiety. His withdrawal scale = 3/10. PRN meds: catapres, librium, sinemet and zofran given for symptoms with (+) effect. Patient able to eat small amount for breakfast and is currently resting with eyes closed, breathing even and unlabored. No physical signs of discomfort or distress.
[2016-09-16 14:00] VITALS: BP 110/73; PULSE 75; RESP 16; TEMP 36.8
[2016-09-16 15:22] LABS: HIV 1/0/2 SCREEN 4TH GEN Non Reactive (Non Reactive)
--- NOTE | 2016-09-16 17:24 | NURSING ---
Information given to patient on area PCP's- as patient does not currently have one.
--- NOTE | 2016-09-16 17:24 | CCN.REFER ---
sat with patient as he finished his lunch; pt began to talk about his life and his current and first real attempt at getting clean from addiction; pt explains that his in 2007 from drugs and he lost ability to parent his only daughter because he went to nursing home; pt says that he has a father that is very supportive and a good Taoist man; pt says that he has support from current girlfriend; pt also speaks of occasional gnosticism attendance and active in a job that are good for him; pt says that he is motivated to get help and get clean but needs the strength to do it; pt said that he appreciated the time to talk to the licensed retail supervisor; pt welcomed a prayer and at end of it the pt was tearful; reminded pt that I am others want to help and that we are proud of him making this step for a better life and future
[2016-09-16 17:43] VITALS: BP 110/74; PULSE 80; RESP 16; TEMP 36.7
[2016-09-16 20:59] VITALS: BP 124/68; PULSE 73; RESP 18; TEMP 36.8
[2016-09-17] MEDS: Buprenorphine HCl 2 MG TAB.SUBL SL (05:16)
[2016-09-17] MEDS: Acetaminophen 325 MG Tablet 650 MG PO (05:17)
[2016-09-17 05:20] VITALS: BP 103/59; PULSE 68; RESP 18; TEMP 36.9
--- NOTE | 2016-09-17 07:09 | PCM.DC ---
- Discharge Diagnoses Current Active Problems: Current Active and Chronic Problems Hepatitis C (Chronic) Heroin abuse (Chronic) You will use the following diet at home:: No restrictions Your food should be the consistency of: Regular Your liquids should be the consistency of: Regular/Thin Discharge Activity: Return to Normal Activity May resume sexual activity in: - - You are both hepatitis C and hepatitis B positive. Sexual intercourse unprotected could result in sexual disease transmission. Your hepatitis surface B antigen and antibody for additional assessment are pending at discharge. Weight Bearing Status: Weight bearing as tolerated Call your doctor if you observe: Fever of 101 or Higher, Inability to urinate, Inability to have a bowel movement, Shortness of breath, Dizziness, Fainting spells, Chest pain, Uncontrolled pain Instructions: Understanding Heroin Abuse and Addiction, Treating Heroin Addiction, Understanding Hepatitis B (HBV), Treating Hepatitis B (HBV), Understanding Hepatitis C (HCV), Treating Hepatitis C (HCV), Hepatitis C and HCV Infection, Hepatitis C: Preventing the Spread, Hepatitis C: Protecting Your Liver, Hepatitis C: Know the Facts Allergies/Adverse Reactions: Allergies codeine Allergy (Verified 09/14/16 12:56) Hives Medications to take at Discharge No Known/Unobtainable [No Known Home Medications] 09/14/16 Primary Care Physician: Care Physician,No Primary [Primary Care Provider] - Please follow up with your Primary Care Physician in: Please establish primary care and follow-up if able within 3-5 days of d/c. Please Follow Up With: [facility] When: Please continue with rehabilitation as arranged per [facility]. Proposed Discharge Date: 09/17/16
--- NOTE | 2016-09-17 07:13 | PCM.DC.SUM ---
Discharge Date and Diagnosis Date of Admission: 09/14/16 Date of Discharge: 09/17/16 - Primary Discharge Diagnosis Acute Opiate Withdrawal secondary to IVDA Heroin Hepatitis C Hepatitis B, unclear if immune/cleared status or chronic infection (Surface antigen and Surface Ab pending at discharge) - Secondary Discharge Diagnosis Chronic Problems Hepatitis C (Chronic) Heroin abuse (Chronic) Hospital Course and Treatment Operations: None Procedures: None Summary of Care Provided: The patient is a 31 y/o M w/ PMHx: Polysubstance abuse, most recently notes transitioned to only Heroine IV with prior Suboxone program enrollment; however, he relapsed, last dose 09/07/16 (prior other usages, including cocaine), Hepatitis C who presented to the [facility] on 09/14/16 w/ acute opiate withdrawal onset. Admitted to ID, obtained routine labs and EKG given prior cocaine usage admission, UDS w/ + opiates and BZD noted, initiated on [facility] service protocol with tapering course of Subutex, as needed Seroquel, Librium, Sinemet, Catapres, Bentyl, Vistaril, IV fluids x 1 L NS, IV antiemetics, Tylenol as needed for pain. Patient clinically improved and completion of taper performed with discharge w/ continued [facility] assistance for transition to next level of rehabilitation care. Patient w/ admitted hepatitis C upon admission. Hepatitis panel obtained with noted Hep B Core Total Ab and Hepatitis C Ab Confirmation >11. HIV negative. Discussed that patient is not a candidate for hep C treatment currently as needs to be clean, sober x 6 months w/ documented attendance NA or AA meetings, counseling and ongoing negative drug screens. Once appropriate recommended strongly GI, ID to initiate outpatient. Upon discharge, Hepatitis B surface Ag and Surface Antibodies to assess whether he is possible chronically infected, infected but cleared infection pending and requested these be followed up with his primary care physician. Fortunately his Se Antigen is negative which portends decreased contagiousness which was also discussed. DAY OF DISCHARGE PROGRESS NOTE: Subjective: Patient without acute event overnight per self and nursing report. Patient denies fever, chills, nausea, emesis, abdominal pain, chest pain or dyspnea. Patient agreeable to discharge to home. Patient will be discharged with follow-up with primary care physician within 3-5 days. Objective: T 98.4, heart rate 68, BP 103/59, respiratory rate 18, 9% on room air. Physical Examination: General: awake, alert, oriented x 3 and cooperative, seated upright in the bed, NAD. Skin: normal color, turgor, no icterus, cyanosis. HEENT: AT/NC, EOMI, PERRLA, MMM. Lungs: CTA bilaterally, moderate effort, mild decrease BL bases, no rales, ronchi or wheezing; Heart: Regular rate and rhythm; no gallop, rub audible. Abdomen: soft, NTTP, ND, normal BS. Extremities: no cyanosis, clubbing, or edema. Neurological: patient awake, alert, oriented x 3; cognitive function appears intact upon questioning,; pupils equally reactive to light and accomodation; cranial nerves II-XII grossly normal, moving all 4 extremities, strength appropriate. Psychiatric: affect appears normal, no acute evidence of depressive or anxiety feelings. Assessment and Plan: Please see hospital summary above. Discharge Activity: Return to Normal Activity May resume sexual activity in: - - You are both hepatitis C and hepatitis B positive. Sexual intercourse unprotected could result in sexual disease transmission. Your hepatitis surface B antigen and antibody for additional assessment are pending at discharge. Weight Bearing Status: Weight bearing as tolerated Call your doctor if you observe: Fever of 101 or Higher, Inability to urinate, Inability to have a bowel movement, Shortness of breath, Dizziness, Fainting spells, Chest pain, Uncontrolled pain Home Medications: Medications to take at Discharge No Known/Unobtainable [No Known Home Medications] 09/14/16 Primary Care Physician: Care Physician,No Primary [Primary Care Provider] - Please follow up with your Primary Care Physician in: Please establish primary care and follow-up if able within 3-5 days of d/c. Please Follow Up With: [facility] Program When: Please continue with rehabilitation as arranged per [facility]. Patient Instructions: Understanding Hepatitis C (HCV), Treating Hepatitis C (HCV), Treating Hepatitis B (HBV), Understanding Hepatitis B (HBV), Understanding Heroin Abuse and Addiction, Treating Heroin Addiction, Hepatitis C and HCV Infection, Hepatitis C: Preventing the Spread, Hepatitis C: Protecting Your Liver, Hepatitis C: Know the Facts Disposition: Home Minutes spent on discharge:: 35 Patient Condition:: Fair Meaningful Use Info Meaningful Use Diagnoses (Choose all that apply): None applicable
--- NOTE | 2016-09-17 07:17 | DS.PCM_ITS ---
Discharge Date and Diagnosis Date of Admission: 09/14/16 Date of Discharge: 09/17/16 - Primary Discharge Diagnosis Acute Opiate Withdrawal secondary to IVDA Heroin Hepatitis C Hepatitis B, unclear if immune/cleared status or chronic infection (Surface antigen and Surface Ab pending at discharge) - Secondary Discharge Diagnosis Chronic Problems Hepatitis C (Chronic) Heroin abuse (Chronic) Hospital Course and Treatment Operations: None Procedures: None Summary of Care Provided: The patient is a 31 y/o M w/ PMHx: Polysubstance abuse, most recently notes transitioned to only Heroine IV with prior Suboxone program enrollment; however , he relapsed, last dose 09/07/16 (prior other usages, including cocaine), Hepatitis C who presented to the [facility] on 09/14/16 w/ acute opiate withdrawal onset. Admitted to [place], obtained routine labs and EKG given prior cocaine usage admission, UDS w/ + opiates and BZD noted, initiated on [facility] service protocol with tapering course of Subutex, as needed Seroquel, Librium, Sinemet, Catapres, Bentyl, Vistaril, IV fluids x 1 L NS, IV antiemetics, Tylenol as needed for pain. Patient clinically improved and completion of taper performed with discharge w/ continued [facility] assistance for transition to next level of rehabilitation care. Patient w/ admitted hepatitis C upon admission. Hepatitis panel obtained with noted Hep B Core Total Ab and Hepatitis C Ab Confirmation >11. HIV negative. Discussed that patient is not a candidate for hep C treatment currently as needs to be clean, sober x 6 months w/ documented attendance NA or AA meetings, counseling and ongoing negative drug screens. Once appropriate recommended strongly GI, ID to initiate outpatient. Upon discharge, Hepatitis B surface Ag and Surface Antibodies to assess whether he is possible chronically infected, infected but cleared infection pending and requested these be followed up with his primary care physician. Fortunately his Se Antigen is negative which portends decreased contagiousness which was also discussed. DAY OF DISCHARGE PROGRESS NOTE: Subjective: Patient without acute event overnight per self and nursing report. Patient denies fever, chills, nausea, emesis, abdominal pain, chest pain or dyspnea. Patient agreeable to discharge to home. Patient will be discharged with follow-up with primary care physician within 3-5 days. Objective: T 98.4, heart rate 68, BP 103/59, respiratory rate 18, 9% on room air. Physical Examination: General: awake, alert, oriented x 3 and cooperative, seated upright in the bed, NAD. Skin: normal color, turgor, no icterus, cyanosis. HEENT: AT/NC, EOMI, PERRLA, MMM. Lungs: CTA bilaterally, moderate effort, mild decrease BL bases, no rales, ronchi or wheezing; Heart: Regular rate and rhythm; no gallop, rub audible. Abdomen: soft, NTTP, ND, normal BS. Extremities: no cyanosis, clubbing, or edema. Neurological: patient awake, alert, oriented x 3; cognitive function appears intact upon questioning,; pupils equally reactive to light and accomodation; cranial nerves II-XII grossly normal, moving all 4 extremities, strength appropriate. Psychiatric: affect appears normal, no acute evidence of depressive or anxiety feelings. Assessment and Plan: Please see hospital summary above. Discharge Activity: Return to Normal Activity May resume sexual activity in: - - You are both hepatitis C and hepatitis B positive. Sexual intercourse unprotected could result in sexual disease transmission. Your hepatitis surface B antigen and antibody for additional assessment are pending at discharge. Weight Bearing Status: Weight bearing as tolerated Call your doctor if you observe: Fever of 101 or Higher, Inability to urinate, Inability to have a bowel movement, Shortness of breath, Dizziness, Fainting spells, Chest pain, Uncontrolled pain Home Medications: Medications to take at Discharge No Known/Unobtainable [No Known Home Medications] 09/14/16 Primary Care Physician: Care Physician,No Primary [Primary Care Provider] - Please follow up with your Primary Care Physician in: Please establish primary care and follow-up if able within 3-5 days of d/c. Please Follow Up With: [facility] When: Please continue with rehabilitation as arranged per [facility]. Patient Instructions: Understanding Hepatitis C (HCV), Treating Hepatitis C ( HCV), Treating Hepatitis B (HBV), Understanding Hepatitis B (HBV), Understanding Heroin Abuse and Addiction, Treating Heroin Addiction, Hepatitis C and HCV Infection, Hepatitis C: Preventing the Spread, Hepatitis C: Protecting Your Liver, Hepatitis C: Know the Facts Disposition: Home Minutes spent on discharge:: 35 Patient Condition:: Fair Meaningful Use Info Meaningful Use Diagnoses (Choose all that apply): None applicable
[2016-09-17 08:40] LABS: HEPATITIS B SURFACE AG Negative (Negative); Hep B Surface Antibodies Non Reactive (.)
[2016-09-17 09:00] VITALS: BP 103/59; PULSE 82; RESP 16; TEMP 36.8
[2016-09-17] MEDS: Multivitamins,Ther W-Minerals Tablet 1 TABLET PO (09:08)
[2016-09-17] MEDS: Thiamine Hydrochloride 100 MG Tablet PO (09:09)
[2016-09-17] MEDS: Folic Acid 1 MG Tablet PO (09:09)
[2016-09-17] MEDS: Loperamide 2 MG Capsule PO (09:09)
--- NOTE | 2016-09-17 10:06 | NURSING ---
asked pt if he wanted us to make PCP follow up appointment for him. pt stated that he lives in [place] and would find and make appointment with a PCP in his area. information provided regarding hepatitis C and hepatits B.
== END 2016-09-17 12:12 | disposition home or self-care (01) | DRG 773 ==
LOC: MS2 04-01 13:02
PROVIDERS: Admitting Provider Family Medicine; Visit Provider Family Medicine
DX: F11.23 Opioid dependence with withdrawal (principal); B19.10 Unspecified viral hepatitis B without hepatic coma; B19.20 Unspecified viral hepatitis C without hepatic coma
CPT/HCPCS: 36415; 80053; 80307; 80320; 81001; 83690; 85025; 85610; 86703; 86704; 86705; 86706; 86708; 86709; 86803; 87340; 93005; 99218; J7030; A4216; G0378; G0379; G0480

== ENCOUNTER 2016-11-06 16:40 | Observation (INO) | payer MEDICAID, SELFPAY ==
--- NOTE | 2016-11-06 16:57 | PCM.HP.STD ---
<Jim Lehman - Last Filed: 11/06/16 16:57> Problem List (1) Opiate withdrawal Status: Acute (2) Hepatitis B Status: Chronic (3) Hepatitis C Status: Chronic QualifierTitle: Viral hepatitis chronicity: unspecified Hepatic coma status: without hepatic coma Qualified Code(s): B19.20 - Unspecified viral hepatitis C without hepatic coma (4) Anxiety Status: Chronic (5) Marijuana abuse Status: Chronic (6) Cocaine abuse Status: Chronic (7) Depression Status: Chronic History of Present Illness Date of Admission: 11/06/16 Chief Complaint: acute heroin withdrawal The patient is a 31 year old M who presented to the [facility] with acute opiate withdrawal. He last used last night, and reports 1 gram / day use. He recently went thru [facility] program in august but relapsed. At that time he was diagnosed with Hepatitis B and C. His plan at [place] is to go through the [facility] counseling program. He lost his to heroin in 2007. He no longer has custody of his child 2/2 his substance abuse issues. His current withdrawal symptoms include restless legs, nausea without vomiting, headache, and hot and cold sweats. He does not use alcohol or benzos. He also abuses cocaine and marijuana - last use 2 days ago. He lives with a spouse who was an addict but recently became sober. No other users in the house. He takes no home medications. He took himself off of celexa for anxiety and depression stating that it did not give him any benefit and he does not want to take anything. He reports significant depression but feels it is only due to the shame of his substance abuse. [] Past Medical History Past Medical History (Chronic Problems): Chronic Problems Anxiety (Chronic) Cocaine abuse (Chronic) Depression (Chronic) Hepatitis B (Chronic) Marijuana abuse (Chronic) Hepatitis C (Chronic) Heroin abuse (Chronic) Allergies codeine Allergy (Verified 09/14/16 12:56) Hives Home Medications: Ambulatory Orders Medication Instructions Recorded No Known/Unobtainable [No Known 09/14/16 Home Medications] Surgical History: no surgical history Psychiatric History: Anxiety, Depression Smoking Status: Never smoker - *Family History Maternal History Items: Diabetes Paternal History Items: No pertinent history Review of Systems Constitutional: Reports: - - hot and cold sweats.. Denies: Chills, Fever, Weakness, Fatigue HEENT: Reports: Head Aches. Denies: Difficulty Swallowing, Hard of Hearing, Nasal bleeding, Visual Changes Cardiovascular: Denies: Chest Pain, Chest Pressure, Chest Tightness, Edema, Heaviness, Light Headedness, Palpitations, Syncope Respiratory: Denies: Cough, Shortness of Breath, Wheezing Gastrointestinal: Reports: Nausea. Denies: Abdominal Pain, Diarrhea, Vomiting Genitourinary: Denies: Dysuria, Frequency Musculoskeletal: Reports: - - restless legs. Denies: Joint Pain, Muscle pain Skin: Denies: Skin Changes, Wounds Neurological: Reports: Headaches. Denies: Blurred vision, Double vision, Change in Speech, Slurred speech, Confusion, Incoordination, Numbness, Tingling Psychiatric: Reports: Anxiety, Depression VTE Information - Inpt Only VTE Present on Admission: No VTE Mechan Device Prophylaxis: None VTE Pharm Prophylaxis ordered?: No Patient Problems: Active and Suspected Problems Opiate withdrawal (Acute) Assessment/Plan Active and Suspected Problems Opiate withdrawal (Acute) A/P: 1. Acute opiate withdrawal - admitted to the medical stabilization program. Tx as per protocol. Current sx - AUGUSTINE, RLS, hot/cold flashes, nausea. 2. HepB/C - Dx at last admission. not treated. 3. Anxiety/Depression - reluctant to start therapy. Failed celexa. 4. Polysubstance abuse - marijuana and cocaine. Check Drug screen. Denies alcohol and nicotine. DC planning: plan is to pursue counselling through [facility] program. Will return home with spouse who is former addict - recently sober. <Theodore Deutsch E - Last Filed: 11/06/16 18:39> History of Present Illness The patient is a 31 year old M [] Past Medical History Allergies codeine Allergy (Verified 09/14/16 12:56) Hives - *Family History Maternal History Items: Diabetes Paternal History Items: No pertinent history - Physical Exam Vital Signs Temp Pulse Resp BP Pulse Ox 97.8 F 67 16 118/84 11/06/16 18:04 11/06/16 18:04 11/06/16 18:04 11/06/16 18:04 Weight: 215 lb 9.793 oz Body Mass Index (BMI) 27.6 Assessment/Plan Hospitalist note: I am seeing this patient in conjunction with Jim Lehman. I independently seen and examined the patient. History and physical above reviewed and I agree with above treatment plan. Patient admitted for opioid withdrawal, has been using IV heroin. He was recently admitted to the hospital for opioid withdrawal for medical stabilization 2 months ago but unfortunately, he started using IV heroin again. - Physical Exam General: Alert, Oriented x3, Cooperative, No apparent distress. HEENT: Atraumatic, PERRLA, EOMI. Neck: Supple, No JVD, Negative Carotid Bruits, Trachea Midline, Thyroid Normal. Lungs: Clear to auscultation, Normal air movement, No rhonchi, No wheeze, No rales. Cardiovascular: Regular rate, Regular Rhythm, Normal S1, Normal S2, PMI Normal. Abdomen: Bowel Sounds Present, Soft, Non Tender, Non-Distended, No Hepato-splenomegaly. Extremities: No clubbing, No cyanosis, No edema Skin: No rashes, No breakdown Neurological: Neuro grossly intact Vital Signs stable. Assessment and plan: Patient with opioid withdrawal, has been using IV heroin with failure of recent detoxification treatment, patient started using IV heroin again. Patient admitted to the floor, plan to start him on [facility] protocol with tapering course of Subutex and other as needed medications. CMP and urine drug screen ordered. He had a history of hepatitis B and C, never been treated for it.
--- NOTE | 2016-11-06 17:10 | HP.PCM_ITS ---
<Jim Lehman - Last Filed: 11/06/16 16:57> Problem List (1) Opiate withdrawal Status: Acute (2) Hepatitis B Status: Chronic (3) Hepatitis C Status: Chronic QualifierTitle: Viral hepatitis chronicity: unspecified Hepatic coma status: without hepatic coma Qualified Code(s): B19.20 - Unspecified viral hepatitis C without hepatic coma (4) Anxiety Status: Chronic (5) Marijuana abuse Status: Chronic (6) Cocaine abuse Status: Chronic (7) Depression Status: Chronic History of Present Illness Date of Admission: 11/06/16 Chief Complaint: acute heroin withdrawal The patient is a 31 year old M who presented to the [facility] with acute opiate withdrawal. He last used last night, and reports 1 gram / day use. He recently went thru [facility] program in august but relapsed. At that time he was diagnosed with Hepatitis B and C. His plan at [place] is to go through the [facility] counseling program. He lost his to heroin in 2007. He no longer has custody of his child 2/2 his substance abuse issues. His current withdrawal symptoms include restless legs, nausea without vomiting, headache, and hot and cold sweats. He does not use alcohol or benzos. He also abuses cocaine and marijuana - last use 2 days ago. He lives with a spouse who was an addict but recently became sober. No other users in the house. He takes no home medications. He took himself off of celexa for anxiety and depression stating that it did not give him any benefit and he does not want to take anything. He reports significant depression but feels it is only due to the shame of his substance abuse. [] Past Medical History Past Medical History (Chronic Problems): Chronic Problems Anxiety (Chronic) Cocaine abuse (Chronic) Depression (Chronic) Hepatitis B (Chronic) Marijuana abuse (Chronic) Hepatitis C (Chronic) Heroin abuse (Chronic) Allergies codeine Allergy (Verified 09/14/16 12:56) Hives Home Medications: Ambulatory Orders Medication Instructions Recorded No Known/Unobtainable [No Known 09/14/16 Home Medications] Surgical History: no surgical history Psychiatric History: Anxiety, Depression Smoking Status: Never smoker - *Family History Maternal History Items: Diabetes Paternal History Items: No pertinent history Review of Systems Constitutional: Reports: - - hot and cold sweats.. Denies: Chills, Fever, Weakness, Fatigue HEENT: Reports: Head Aches. Denies: Difficulty Swallowing, Hard of Hearing, Nasal bleeding, Visual Changes Cardiovascular: Denies: Chest Pain, Chest Pressure, Chest Tightness, Edema, Heaviness, Light Headedness, Palpitations, Syncope Respiratory: Denies: Cough, Shortness of Breath, Wheezing Gastrointestinal: Reports: Nausea. Denies: Abdominal Pain, Diarrhea, Vomiting Genitourinary: Denies: Dysuria, Frequency Musculoskeletal: Reports: - - restless legs. Denies: Joint Pain, Muscle pain Skin: Denies: Skin Changes, Wounds Neurological: Reports: Headaches. Denies: Blurred vision, Double vision, Change in Speech, Slurred speech, Confusion, Incoordination, Numbness, Tingling Psychiatric: Reports: Anxiety, Depression VTE Information - Inpt Only VTE Present on Admission: No VTE Mechan Device Prophylaxis: None VTE Pharm Prophylaxis ordered?: No Patient Problems: Active and Suspected Problems Opiate withdrawal (Acute) Assessment/Plan Active and Suspected Problems Opiate withdrawal (Acute) A/P: 1. Acute opiate withdrawal - admitted to the medical stabilization program. Tx as per protocol. Current sx - AUGUSTINE, RLS, hot/cold flashes, nausea. 2. HepB/C - Dx at last admission. not treated. 3. Anxiety/Depression - reluctant to start therapy. Failed celexa. 4. Polysubstance abuse - marijuana and cocaine. Check Drug screen. Denies alcohol and nicotine. DC planning: plan is to pursue counselling through [facility] program. Will return home with spouse who is former addict - recently sober. <Theodore Deutsch E - Last Filed: 11/06/16 18:39> History of Present Illness The patient is a 31 year old M [] Past Medical History Allergies codeine Allergy (Verified 09/14/16 12:56) Hives - *Family History Maternal History Items: Diabetes Paternal History Items: No pertinent history - Physical Exam Vital Signs Temp Pulse Resp BP Pulse Ox 97.8 F 67 16 118/84 11/06/16 18:04 11/06/16 18:04 11/06/16 18:04 11/06/16 18:04 Weight: 215 lb 9.793 oz Body Mass Index (BMI) 27.6 Assessment/Plan Hospitalist note: I am seeing this patient in conjunction with Jim Lehman. I independently seen and examined the patient. History and physical above reviewed and I agree with above treatment plan. Patient admitted for opioid withdrawal, has been using IV heroin. He was recently admitted to the hospital for opioid withdrawal for medical stabilization 2 months ago but unfortunately, he started using IV heroin again. - Physical Exam General: Alert, Oriented x3, Cooperative, No apparent distress. HEENT: Atraumatic, PERRLA, EOMI. Neck: Supple, No JVD, Negative Carotid Bruits, Trachea Midline, Thyroid Normal. Lungs: Clear to auscultation, Normal air movement, No rhonchi, No wheeze, No rales. Cardiovascular: Regular rate, Regular Rhythm, Normal S1, Normal S2, PMI Normal. Abdomen: Bowel Sounds Present, Soft, Non Tender, Non-Distended, No Hepato- splenomegaly. Extremities: No clubbing, No cyanosis, No edema Skin: No rashes, No breakdown Neurological: Neuro grossly intact Vital Signs stable. Assessment and plan: Patient with opioid withdrawal, has been using IV heroin with failure of recent detoxification treatment, patient started using IV heroin again. Patient admitted to the floor, plan to start him on [facility] protocol with tapering course of Subutex and other as needed medications. CMP and urine drug screen ordered. He had a history of hepatitis B and C, never been treated for it.
[2016-11-06 17:50] VITALS: BMI 27.6
[2016-11-06 17:58] VITALS: BMI 27.7
[2016-11-06 18:04] VITALS: BP 118/84; PULSE 67; RESP 16; TEMP 36.6
[2016-11-06] MEDS: cloNIDine HCl 0.1 MG Tablet PO ×2 (18:53→20:56)
[2016-11-06] MEDS: Methocarbamol 750 MG Tablet PO (18:53)
[2016-11-06] MEDS: Dicyclomine 10 MG Capsule 20 MG PO (18:53)
[2016-11-06] MEDS: Buprenorphine HCl 2 MG TAB.SUBL SL (18:53)
[2016-11-06] MEDS: chlordiazePOXIDE 25 MG Capsule PO (18:53)
[2016-11-06 20:06] LABS: ALB/GLOB Ratio 0.9 RATIO (0.9-2.4); AST(SGOT) 49 U/L (15-37); Alanine Aminotransfer ALT/SGPT 94 U/L (12-78); Albumin, Serum 3.7 g/dL (3.4-5.0); Alkaline Phosphatase 88 U/L (45-117); Anion Gap 7 (5-15); BUN 11 mg/dL (7-18); BUN/Creat Ratio 14.4 RATIO (10-20); Calcium,Total 8.8 mg/dL (8.5-10.1); Chloride 101 mmol/L (98-107); Creatinine, Serum 0.77 mg/dL (0.70-1.30); EST Glomerular Filtration Rate 124 mL/min (>60); Est Glom Filt Rate - Afr Amer 150 mL/min (>60); Estimated Creatinine Clearance 158.65 ml/min; Globulin 4.1 g/dL (2.3-3.5); Glucose 99 mg/dL (70-110); Potassium 3.8 mmol/L (3.5-5.1); Protein, Total 7.8 g/dL (6.4-8.2); Sodium Level 138 mmol/L (136-145)
[2016-11-06 20:21] LABS: Amphetamine Urine VISTA NEGATIVE (<1000 ng/mL); Barbiturate Urine VISTA NEGATIVE (< 200 ng/mL); Benzodiazepine Urine VISTA NEGATIVE (< 200 ng/mL); Cocaine Urine VISTA NEGATIVE (< 300 ng/mL); Ecstacy Urine VISTA NEGATIVE (< 500 ng/mL); Methadone Urine VISTA NEGATIVE (< 300 ng/mL); PCP Urine VISTA NEGATIVE (< 25 ng/mL); THC Urine VISTA NEGATIVE (< 50 ng/mL); Vista UDS pH Range 7
[2016-11-06 20:43] VITALS: BP 120/79; PULSE 72; RESP 16; TEMP 37.1; O2SAT 98
[2016-11-06 20:44] VITALS: BP 120/79; PULSE 72; RESP 16; TEMP 37.1
[2016-11-06 20:47] VITALS: PULSE 72; RESP 16; O2SAT 98
[2016-11-06] MEDS: QUEtiapine 25 MG Tablet PO (20:56)
[2016-11-06] MEDS: Carbidopa/Levodopa 25/100 Tablet PO (20:56)
[2016-11-06 22:26] VITALS: BP 125/75; PULSE 68; RESP 16; TEMP 36.6
[2016-11-07 02:21] VITALS: BP 119/58; PULSE 62; RESP 16; TEMP 36.6
[2016-11-07] MEDS: Buprenorphine HCl 2 MG TAB.SUBL SL ×3 (02:21→17:48)
[2016-11-07] MEDS: chlordiazePOXIDE 25 MG Capsule PO ×3 (02:24→17:55)
[2016-11-07] MEDS: Methocarbamol 750 MG Tablet PO ×2 (02:24→09:52)
[2016-11-07 06:19] VITALS: BP 108/54; PULSE 65; RESP 16; TEMP 36.9
[2016-11-07] MEDS: cloNIDine HCl 0.1 MG Tablet PO ×2 (06:25→17:54)
[2016-11-07] MEDS: Ondansetron 8 MG Tablet PO ×2 (06:25→17:54)
[2016-11-07] MEDS: Dicyclomine 10 MG Capsule 20 MG PO ×2 (06:25→17:54)
[2016-11-07] MEDS: QUEtiapine 25 MG Tablet PO ×2 (06:25→12:06)
[2016-11-07 09:45] VITALS: BP 98/60; PULSE 66; RESP 16; TEMP 36.8
[2016-11-07] MEDS: Carbidopa/Levodopa 25/100 Tablet PO ×2 (11:06→17:55)
[2016-11-07] MEDS: Zolpidem Tartrate 5 MG Tablet PO (11:37)
--- NOTE | 2016-11-07 14:53 | PCM.PROGNOTE ---
<Jim Lehman - Last Filed: 11/07/16 14:53> Patient Problems: Active and Suspected Problems Opiate withdrawal (Acute) Subjective: Sleeping in bed comfortably, easily roused, with no symptoms currently. - Physical Exam General: Alert, Oriented x3, Cooperative HEENT: Atraumatic, PERRLA, EOMI, Normocephalic Neck: Supple, No JVD, Negative Carotid Bruits Lungs: Clear to auscultation, Normal air movement Cardiovascular: Regular rate, No murmurs Abdomen: Bowel Sounds Present, Soft, Non Tender Extremities: No edema, Capillary Refill Less than 3 Seconds Skin: No rashes, No breakdown Musculoskeletal: No Tenderness to Palpation of Joints or Extremities Neurological: Cranial nerves II-XII grossly intact Psych/Mental Status: Normal Affect, Appropriate, Alert and oriented to time, place, person, mood and affect Vital Signs Temp Pulse Resp BP Pulse Ox 98.2 F 66 16 98/60 98 11/07/16 09:45 11/07/16 09:45 11/07/16 09:45 11/07/16 09:45 11/06/16 20:47 Oxygen Delivery Method Room Air Weight: 97.8 kg Body Mass Index (BMI) 27.6 Intake and Output for Last 24 Hours 11/05/16 11/06/16 11/07/16 23:59 23:59 23:59 Intake Total 1550 Balance 1550 Laboratory Tests Past 24 Hrs 11/06/16 11/06/16 19:25 19:40 Sodium 138 Potassium 3.8 Chloride 101 Carbon Dioxide 30.0 Anion Gap 7 BUN 11 Creatinine 0.77 Estim Creat Clear Calc 158.65 Est GFR (MDRD) Af Amer 150 Est GFR (MDRD) Non-Af 124 BUN/Creatinine Ratio 14.4 Glucose 99 Calcium 8.8 Total Bilirubin 0.50 AST 49 H ALT 94 H Alkaline Phosphatase 88 Total Protein 7.8 Albumin 3.7 Globulin 4.1 H Albumin/Globulin Ratio 0.9 Urine Opiates Screen POSITIVE H Urine Methadone Screen NEGATIVE Ur Barbiturates Screen NEGATIVE Ur Phencyclidine Scrn NEGATIVE Ur Amphetamines Screen NEGATIVE U Methamphetamin-MDMA NEGATIVE U Benzodiazepines Scrn NEGATIVE Urine Cocaine Screen NEGATIVE U Cannabinoids Screen NEGATIVE Ur Drug Screen Comment Assessment/Plan Active and Suspected Problems Opiate withdrawal (Acute) A/P: 1. Acute opiate withdrawal - continue medical stabilization program. Tx as per protocol. Current sx - none. 2. HepB/C - Dx at last admission. not treated. LFTs mildly elevated. 3. Anxiety/Depression - reluctant to start therapy. Failed celexa. 4. Polysubstance abuse - marijuana and cocaine. Check Drug screen. Denies alcohol and nicotine. DC planning: plan is to pursue counselling through [facility] program. Will return home with spouse who is former addict - recently sober. <Theodore Deutsch E - Last Filed: 11/07/16 15:46> - Physical Exam Lungs: No rhonchi, No wheeze Cardiovascular: Regular Rhythm, Normal S1, Normal S2 Abdomen: Non-Distended, No Hepato-splenomegaly Extremities: No clubbing, No cyanosis Neurological: Motor Exam 5/5 strength throughout Vital Signs Temp Pulse Resp BP Pulse Ox 98.2 F 66 16 98/60 98 11/07/16 09:45 11/07/16 09:45 11/07/16 09:45 11/07/16 09:45 11/06/16 20:47 Oxygen Delivery Method Room Air Weight: 215 lb 9.793 oz Body Mass Index (BMI) 27.6 Intake and Output for Last 24 Hours 11/05/16 11/06/16 11/07/16 23:59 23:59 23:59 Intake Total 1550 Balance 1550 Laboratory Tests Past 24 Hrs 11/06/16 11/06/16 19:25 19:40 Sodium 138 Potassium 3.8 Chloride 101 Carbon Dioxide 30.0 Anion Gap 7 BUN 11 Creatinine 0.77 Estim Creat Clear Calc 158.65 Est GFR (MDRD) Af Amer 150 Est GFR (MDRD) Non-Af 124 BUN/Creatinine Ratio 14.4 Glucose 99 Calcium 8.8 Total Bilirubin 0.50 AST 49 H ALT 94 H Alkaline Phosphatase 88 Total Protein 7.8 Albumin 3.7 Globulin 4.1 H Albumin/Globulin Ratio 0.9 Urine Opiates Screen POSITIVE H Urine Methadone Screen NEGATIVE Ur Barbiturates Screen NEGATIVE Ur Phencyclidine Scrn NEGATIVE Ur Amphetamines Screen NEGATIVE U Methamphetamin-MDMA NEGATIVE U Benzodiazepines Scrn NEGATIVE Urine Cocaine Screen NEGATIVE U Cannabinoids Screen NEGATIVE Ur Drug Screen Comment Assessment/Plan Hospitalist note: I am seeing this patient in conjunction with Jim Lehman. I independently seen and examined the patient. Progress note above and laboratory data reviewed and I agree with the above treatment plan. When I saw the patient, he complained of insomnia. Reported mild improvement of his symptoms. Vital signs are stable. Physical examination essentially unremarkable and unchanged from yesterday. Order given to give him 1 dose of Ambien 5 mg p.o. ?1, continue [facility] protocol for opioid withdrawal. .
[2016-11-07 17:46] VITALS: BP 129/83; PULSE 75; RESP 16; TEMP 36.7
[2016-11-07] MEDS: Ibuprofen 400 MG Tablet 800 MG PO (18:47)
[2016-11-07] MEDS: Loperamide 2 MG Capsule PO (18:47)
--- NOTE | 2016-11-07 20:10 | NURSING ---
pt stated he just wants to sleep. Appears to be in no distress. Will let pt sleep and do full assessment later
[2016-11-08 00:53] VITALS: BP 96/61; PULSE 64; RESP 18; TEMP 36.5; O2SAT 98
[2016-11-08] MEDS: QUEtiapine 25 MG Tablet PO ×2 (01:03→21:34)
[2016-11-08] MEDS: Buprenorphine HCl 2 MG TAB.SUBL SL ×3 (01:03→21:29)
[2016-11-08 10:00] VITALS: BP 122/71; PULSE 64; RESP 16; TEMP 36.4
--- NOTE | 2016-11-08 10:45 | PN_ITS ---
<Jim Lehman - Last Filed: 11/08/16 10:44> Patient Problems: Active and Suspected Problems Opiate withdrawal (Acute) Subjective: Some diarrhea yesterday, given a dose of immodium with complete relief. Some leg pain yesterday, given tylenol and ibuprofen with complete relief. No symptoms currently. - Physical Exam General: Alert, Oriented x3, Cooperative HEENT: Atraumatic, PERRLA, EOMI, Normocephalic Neck: Supple, No JVD, Negative Carotid Bruits Lungs: Clear to auscultation, Normal air movement Cardiovascular: Regular rate, No murmurs Abdomen: Bowel Sounds Present, Soft, Non Tender Extremities: No edema, Capillary Refill Less than 3 Seconds Skin: No rashes, No breakdown Musculoskeletal: No Tenderness to Palpation of Joints or Extremities Neurological: Cranial nerves II-XII grossly intact Psych/Mental Status: Normal Affect, Appropriate Vital Signs Temp Pulse Resp BP Pulse Ox 97.5 F 64 16 122/71 98 11/08/16 10:11/08/16 10:11/08/16 10:11/08/16 10:00 11/08/16 00:53 Oxygen Delivery Method Room Air Weight: 97.8 kg Body Mass Index (BMI) 27.6 Intake and Output for Last 24 Hours 11/06/16 11/07/16 11/08/16 23:59 23:59 23:59 Intake Total 1900 Balance 1900 Assessment/Plan Active and Suspected Problems Opiate withdrawal (Acute) A/P: 1. Acute opiate withdrawal - continue medical stabilization program. Tx as per protocol. Current sx - none. Leg pain and diarrhea resolved. 2. HepB/C - Dx at last admission. not treated. LFTs mildly elevated. 3. Anxiety/Depression - reluctant to start therapy. Failed celexa. 4. Polysubstance abuse - marijuana and cocaine. Check Drug screen. Denies alcohol and nicotine. DC planning: plan is to pursue counselling through [facility]? program. Will return home with spouse who is former addict - recently sober. <Theodore Deutsch - Last Filed: 11/08/16 14:10> - Physical Exam Vital Signs Temp Pulse Resp BP Pulse Ox 97.5 F 64 16 122/71 98 11/08/16 10:00 11/08/16 10:00 11/08/16 10:00 11/08/16 10:00 11/08/16 00:53 Oxygen Delivery Method Room Air Weight: 215 lb 9.793 oz Body Mass Index (BMI) 27.6 Intake and Output for Last 24 Hours 11/06/16 11/07/16 11/08/16 23:59 23:59 23:59 Intake Total 1900 Balance 1900 Assessment/Plan Hospitalist note: I am seeing this patient in conjunction with Jim Lehman. I independently seen and examined the patient. Progress note above reviewed and I agree with above treatment plan. Patient admitted for opioid withdrawal, started on [facility] protocol with tapering Subutex. Patient reported slow improvement of his symptoms. Physical examination is essentially unchanged from yesterday, as above. Plan to continue same treatment, [place] home tomorrow. Dr. Deutsch.
[2016-11-08 14:00] VITALS: BP 100/67; PULSE 66; RESP 16; TEMP 36.8
[2016-11-08 18:00] VITALS: BP 99/59; PULSE 80; RESP 16; TEMP 36.6
[2016-11-08 21:30] VITALS: BP 121/77; PULSE 61; RESP 18; TEMP 36.6; O2SAT 98
[2016-11-09 05:40] VITALS: BP 113/77; PULSE 70; RESP 16; TEMP 36.9
--- NOTE | 2016-11-09 07:47 | PCM.DC ---
- Discharge Diagnoses Current Active Problems: Current Active and Chronic Problems Opiate withdrawal (Acute) Anxiety (Chronic) Cocaine abuse (Chronic) Depression (Chronic) Hepatitis B (Chronic) Marijuana abuse (Chronic) You will use the following diet at home:: No restrictions Your food should be the consistency of: Regular Discharge Activity: Return to Normal Activity, May not drive while taking narcotic pain medications. Allergies/Adverse Reactions: Allergies codeine Allergy (Verified 09/14/16 12:56) Hives Medications to take at Discharge No Known/Unobtainable [No Known Home Medications] 09/14/16 Primary Care Physician: Care Physician,No Primary [Primary Care Provider] - Please follow up with your Primary Care Physician in: in 1-2 weeks Proposed Discharge Date: 11/09/16
--- NOTE | 2016-11-09 07:48 | PCM.DC.SUM ---
Discharge Date and Diagnosis - Problem List Patient Problems: Active and Suspected Problems Opiate withdrawal (Acute) Date of Admission: 11/06/16 Date of Discharge: 11/09/16 - Primary Discharge Diagnosis Active and Suspected Problems Opiate withdrawal (Acute) - Secondary Discharge Diagnosis Chronic Problems Anxiety (Chronic) Cocaine abuse (Chronic) Depression (Chronic) Hepatitis B (Chronic) Marijuana abuse (Chronic) Hepatitis C (Chronic) Heroin abuse (Chronic) Hospital Course and Treatment Operations: None Summary of Care Provided: The patient is a 31 year old M with history of heroine dependence admitted with acute opiate withdrawal. Patient was admitted to regular nursing floor for medical stabilization with Subutex. Patient did improve after 3 days of hospitalization discharge home instructed to follow-up with PCP for subsequent care. Patient also has a heat diagnosis of hep C was instructed to find a PCP for initiation of treatment Discharge Diet: No Restrictions Discharge Activity: Return to Normal Activity, May not drive while taking narcotic pain medications. Home Medications: Medications to take at Discharge No Known/Unobtainable [No Known Home Medications] 09/14/16 Primary Care Physician: Care Physician,No Primary [Primary Care Provider] - Please follow up with your Primary Care Physician in: in 1-2 weeks Minutes spent on discharge:: 35 Patient Condition:: Stable Meaningful Use Info Meaningful Use Diagnoses (Choose all that apply): None applicable
[2016-11-09 09:08] VITALS: BP 121/78; PULSE 95; RESP 18; TEMP 37.1; O2SAT 99
[2016-11-09 09:22] VITALS: BP 120/76; PULSE 95; RESP 18; TEMP 37
[2016-11-09] MEDS: Buprenorphine HCl 2 MG TAB.SUBL SL (09:24)
--- NOTE | 2016-11-09 09:43 | NURSING ---
Carmen with [facility] in to see pt- pt denies further needs. Pt updated by Carmen regarding d/c to [facility] today.
== END 2016-11-09 10:10 | disposition home or self-care (01) | DRG 773 ==
LOC: MS2 04-16 15:21
PROVIDERS: Physician Assistant; Admitting Provider Hospitalist; Visit Provider Internal Medicine
DX: F11.23 Opioid dependence with withdrawal (principal); F32.9 Major depressive disorder, single episode, unspecified; F41.9 Anxiety disorder, unspecified; F12.10 Cannabis abuse, uncomplicated; F14.10 Cocaine abuse, uncomplicated; B18.1 Chronic viral hepatitis B without delta-agent; B18.2 Chronic viral hepatitis C
CPT/HCPCS: 36415; 80053; 80307; 99218; G0378; G0379

== ENCOUNTER 2017-09-24 16:55 | Inpatient (IN) | payer MEDICAID, SELFPAY ==
[2017-09-24 16:59] VITALS: BP 123/81; PULSE 106; RESP 20; TEMP 36.9; O2SAT 93; BMI 24.2
--- NOTE | 2017-09-24 17:37 | EKG12_ITS ---
Test Reason : [facility] Blood Pressure : / mmHG Vent. Rate : 074 BPM Atrial Rate : 074 BPM P-R Int : 142 ms QRS Dur : 092 ms QT Int : 376 ms P-R-T Axes : 068 050 047 degrees QTc Int : 417 ms Normal sinus rhythm Normal ECG Confirmed by TRACI HERRERA, FRANCISCO ([id number]), medical editor STEVIE STANLEY ([id number]) on 09/28/2017 2:18:54 PM Referred By: TERESO Confirmed By:FRANCISCO AVILES MD
[2017-09-24 18:05] VITALS: BP 115/68; PULSE 100; RESP 14; O2SAT 99
[2017-09-24 18:09] LABS: Absolute Lymphocyte Count 3.23 X10^3/ul (0.83-4.51); Absolute Neutrophil Count 4.5 X10^3/uL (2.0-7.7); Basophil# 0.03 X10^3/uL; Basophil% 0.3 % (0-1); Eosinophil# 0.19 X10^3/uL; Eosinophils% 2.1 % (0-5); Hematocrit 39.5 % (40-54); Hemoglobin 13.4 g/dl (13.0-16.5); Lymphocyte # 3.23 X10^3/ul (4.0); Mean Corp Hgb Conc 33.9 g/gl (32-36); Mean Corpuscular Volume 88.4 fL (80-94); Mean Platelet Vol. 9.8 fl (6.2-12.0); Monocyte# 1.04 X10^3/uL; Monocyte% 11.6 % (0-10); Neutrophil # 4.47 X10^3/uL (2.7-7.7); Neutrophil % 49.8 % (47-70); Platelet Count 269 K/mm3 (150-450); RBC Distribution Width CV 13.1 % (11.6-14.6); Red Blood Count 4.47 M/mm3 (4.6-6.2)
[2017-09-24 18:10] LABS: POSITIVE COUNT NO; POSITIVE DIFFERENTIAL NO; POSITIVE MORPHOLOGY NO
[2017-09-24 18:13] LABS: Prothrombin Time (Protime)PT. 13.5 SECONDS (11.7-14.9)
[2017-09-24 18:19] LABS: ALB/GLOB Ratio 0.9 RATIO (0.9-2.4); AST(SGOT) 77 U/L (15-37); Alanine Aminotransfer ALT/SGPT 90 U/L (16-61); Alkaline Phosphatase 88 U/L (45-117); Anion Gap 5 (5-15); BUN 11 mg/dL (7-18); BUN/Creat Ratio 12.2 RATIO (10-20); Calcium,Total 9.6 mg/dL (8.5-10.1); Chloride 101 mmol/L (98-107); EST Glomerular Filtration Rate 103 mL/min (>60); Est Glom Filt Rate - Afr Amer 124 mL/min (>60); Estimated Creatinine Clearance 134.46 ml/min; Globulin 4.5 g/dL (2.2-4.2); Glucose 90 mg/dL (74-106); Lipase 62 U/L (73-393); Magnesium 2.1 mg/dL (1.6-2.6); Potassium 3.7 mmol/L (3.5-5.1); Protein, Total 8.5 g/dL (6.4-8.2); Sodium Level 137 mmol/L (136-145)
[2017-09-24 18:23] LABS: Alcohol, Blood (Medical)-Serum < 3.0 mg/dL
[2017-09-24 18:34] LABS: Mucous, Urine 0 SEEN /hpf (<or=2+); Red Blood Cells-Urine 0 SEEN /hpf (0-5); Squamous Epithelial Cells - UA 0 SEEN /hpf (0-5); White Blood Cells 0 SEEN /hpf (0-5)
[2017-09-24 18:40] LABS: Color, Urine Yellow (Yellow); Glucose, Dipstick Normal (Normal); Ketone-Dipstick Negative (Negative); Leukocyte Esterase-Dipstick Negative /ul (Negative); Nitrite-Dipstick Negative (Negative); Occult Blood-Urine Negative /ul (Negative); Protein-Dipstick 15 mg/dl (Negative); Specific Gravity, Urine 1.015 (1.002-1.030); Urine Bilirubin Dipstick Negative (Negative); Urine Clarity Sl. Cloudy (Clear); Urine Urobilinogen Normal (Normal); Urine pH 6.5 (5.0 - 8.0)
[2017-09-24 18:53] LABS: Bacteria RARE /hpf (None Seen)
[2017-09-24 19:00] VITALS: PULSE 84; RESP 23; O2SAT 99
[2017-09-24 19:02] LABS: Amphetamine Urine VISTA POSITIVE (<1000 ng/mL); Barbiturate Urine VISTA NEGATIVE (< 200 ng/mL); Benzodiazepine Urine VISTA POSITIVE (< 200 ng/mL); Cocaine Urine VISTA NEGATIVE (< 300 ng/mL); Ecstacy Urine VISTA NEGATIVE (< 500 ng/mL); Methadone Urine VISTA NEGATIVE (< 300 ng/mL); PCP Urine VISTA NEGATIVE (< 25 ng/mL); THC Urine VISTA POSITIVE (< 50 ng/mL); Vista UDS pH Range 6
--- NOTE | 2017-09-24 19:20 | PCM.HP.STD ---
History of Present Illness The patient is a 32 year old M [] Past Medical History Past Medical History (Chronic Problems): Chronic Problems Marijuana abuse (Chronic) Cocaine abuse (Chronic) Depression (Chronic) Anxiety (Chronic) Hepatitis B (Chronic) Hepatitis C (Chronic) Heroin abuse (Chronic) Allergies codeine Allergy (Verified 09/24/17 17:02) Hives Home Medications: Ambulatory Orders Medication Instructions Recorded No Known/Unobtainable [No Known 09/14/16 Home Medications] Surgical History: no surgical history Psychiatric History: Anxiety, Depression Smoking Status: Never smoker - *Family History Maternal History Items: Diabetes Paternal History Items: No pertinent history - Physical Exam Vital Signs Temp Pulse Resp BP Pulse Ox 98.5 F 100 14 115/68 99 09/24/17 16:59 09/24/17 18:05 09/24/17 18:05 09/24/17 18:05 09/24/17 18:05 Oxygen Delivery Method Room Air Weight: 85.5 kg Body Mass Index (BMI) 24.2 Laboratory Tests Past 24 Hrs 09/24/17 09/24/17 09/24/17 17:50 17:50 17:50 WBC 9.0 RBC 4.47 L Hgb 13.4 Hct 39.5 L MCV 88.4 MCH 30.0 MCHC 33.9 RDW 13.1 RDW Differential 42.0 Plt Count 269 MPV 9.8 Immature Gran % (Auto) 0.200 Neut % (Auto) 49.8 Lymph % (Auto) 36.0 [place] % (Auto) 11.6 H Eos % (Auto) 2.1 Baso % (Auto) 0.3 Absolute Neuts (auto) 4.5 Absolute Lymphs (auto) 3.23 Total Counted Not Reportable PT 13.5 INR 1.0 APTT 35.0 Sodium 137 Potassium 3.7 Chloride 101 Carbon Dioxide 31.0 Anion Gap 5 BUN 11 Creatinine 0.90 Estim Creat Clear Calc 134.46 Est GFR (MDRD) Af Amer 124 Est GFR (MDRD) Non-Af 103 BUN/Creatinine Ratio 12.2 Glucose 90 Calcium 9.6 Magnesium 2.1 Total Bilirubin 0.70 AST 77 H ALT 90 H Alkaline Phosphatase 88 Troponin I < 0.015 Total Protein 8.5 H Albumin 4.0 Globulin 4.5 H Albumin/Globulin Ratio 0.9 Lipase 62 L Urine Color Urine Clarity Urine pH Ur Specific [place] Urine Protein Urine Glucose (UA) Urine Ketones Urine Occult Blood Urine Nitrite Urine Bilirubin Urine Urobilinogen Ur Leukocyte Esterase Urine RBC Urine WBC Ur Squamous Epith Cells Urine Bacteria Urine Mucus Urine Opiates Screen Urine Methadone Screen Ur Barbiturates Screen Ur Phencyclidine Scrn Ur Amphetamines Screen U Methamphetamin-MDMA U Benzodiazepines Scrn Urine Cocaine Screen U Cannabinoids Screen Ur Drug Screen Comment Ethyl Alcohol 09/24/17 09/24/17 09/24/17 17:50 18:14 18:14 WBC RBC Hgb Hct MCV MCH MCHC RDW RDW Differential Plt Count MPV Immature Gran % (Auto) Neut % (Auto) Lymph % (Auto) [place] % (Auto) Eos % (Auto) Baso % (Auto) Absolute Neuts (auto) Absolute Lymphs (auto) Total Counted PT INR APTT Sodium Potassium Chloride Carbon Dioxide Anion Gap BUN Creatinine Estim Creat Clear Calc Est GFR (MDRD) Af Amer Est GFR (MDRD) Non-Af BUN/Creatinine Ratio Glucose Calcium Magnesium Total Bilirubin AST ALT Alkaline Phosphatase Troponin I Total Protein Albumin Globulin Albumin/Globulin Ratio Lipase Urine Color Yellow Urine Clarity Sl. Cloudy Urine pH 6.5 Ur Specific [place] 1.015 Urine Protein 15 H Urine Glucose (UA) Normal Urine Ketones Negative Urine Occult Blood Negative Urine Nitrite Negative Urine Bilirubin Negative Urine Urobilinogen Normal Ur Leukocyte Esterase Negative Urine RBC 0 SEEN Urine WBC 0 SEEN Ur Squamous Epith Cells 0 SEEN Urine Bacteria RARE Urine Mucus 0 SEEN Urine Opiates Screen POSITIVE H Urine Methadone Screen NEGATIVE Ur Barbiturates Screen NEGATIVE Ur Phencyclidine Scrn NEGATIVE Ur Amphetamines Screen POSITIVE H U Methamphetamin-MDMA NEGATIVE U Benzodiazepines Scrn POSITIVE H Urine Cocaine Screen NEGATIVE U Cannabinoids Screen POSITIVE H Ur Drug Screen Comment Ethyl Alcohol < 3.0 Assessment/Plan All Active Problems Opiate withdrawal (Acute)
--- NOTE | 2017-09-24 20:00 | PCM.HP.STD ---
Problem List (1) Opiate withdrawal Status: Acute History of Present Illness Date of Admission: 09/24/17 Chief Complaint: heroin withdrawal The patient is a 32 year old M presents seeking treatment for heroin abuse. Patient's last use was at midnight this morning. Patient injects heroin. Additionally, he smokes marijuana, takes a brick of Xanax daily, smokes methamphetamines and drinks a sixpack of alcohol. Patient is recently moved up from [place] and was 1 to clean himself up because his family is upset. This is patient's multiple attempts at detox. Patient's from an overdose 10 years ago. Patient was being evaluated by Tere Lopez and then dropped off in the emergency room. According to the emergency room physician, no direct conversation was had between himself and tere lopez to explain why he was just dropped off in the emergency room rather than being admitted to the hospital. [] Past Medical History Past Medical History (Chronic Problems): Chronic Problems Marijuana abuse (Chronic) Cocaine abuse (Chronic) Depression (Chronic) Anxiety (Chronic) Hepatitis B (Chronic) Hepatitis C (Chronic) Heroin abuse (Chronic) Allergies codeine Allergy (Verified 09/24/17 17:02) Hives Home Medications: Ambulatory Orders Medication Instructions Recorded No Known/Unobtainable [No Known 09/14/16 Home Medications] Surgical History: no surgical history Psychiatric History: Anxiety, Depression Smoking Status: Never smoker Alcohol: Heavy Drugs: Heroin, Marijuana, - - Methamphetamines, Xanax - *Family History Maternal History Items: Diabetes Paternal History Items: No pertinent history Review of Systems Constitutional: Reports: Chills, Fever. Denies: Anorexia Eyes: Denies: Blurred vision, Double vision HEENT: Reports: - - Rhinitis. Denies: Head Aches, Sinus Congestion, Sinus Drainage Cardiovascular: Denies: Chest Pain, Palpitations Respiratory: Denies: Cough, Shortness of breath at rest, Sputum production Gastrointestinal: Denies: Abdominal Pain, Nausea, Vomiting Genitourinary: Denies: Dysuria Musculoskeletal: Denies: Joint Pain, Joint Tenderness Skin: Denies: Dryness, Jaundice Neurological: Denies: Numbness, Tingling, Focal weakness Psychiatric: Reports: Anxiety, Depression Hematologic/ Lymphatic: Denies: Easy Bruising, Easy Bleeding, Hx of blood clot Comment: All review of systems are negative except as mentioned in the history of present illness and the other review of systems. VTE Information - Inpt Only VTE Present on Admission: No VTE Mechan Device Prophylaxis: None VTE Pharm Prophylaxis ordered?: No Reason prophylaxis not ordered:: Procedure Not Indicated - Physical Exam General: Alert, Cooperative, No apparent distress, - - Anxious. Afebrile. HEENT: Atraumatic, Normocephalic, - - No scleral icterus Oral: Moist Mucosa, No Gingival or Mucosal Lesions/ Ulcerations Neck: No Nodes, Thyroid Normal Size and Texture Lungs: Clear to auscultation, Normal air movement, No rhonchi, No wheeze Cardiovascular: Regular rate, Regular Rhythm, Normal S1, Normal S2, No murmurs Abdomen: Bowel Sounds Present, Soft, Non Tender, Non-Distended, No Hepato-splenomegaly Extremities: No edema, No Calf Tenderness Skin: No rashes, No breakdown Musculoskeletal: No Tenderness to Palpation of Joints or Extremities, No Muscle Wasting Psych/Mental Status: Normal Affect, Appropriate Vital Signs Temp Pulse Resp BP Pulse Ox 36.9 C 84 23 H 115/68 99 09/24/17 16:59 09/24/17 19:00 09/24/17 19:00 09/24/17 18:05 09/24/17 19:00 Oxygen Delivery Method Room Air Weight: 85.5 kg Body Mass Index (BMI) 24.2 Laboratory Tests Past 24 Hrs 09/24/17 09/24/17 09/24/17 17:50 17:50 17:50 WBC 9.0 RBC 4.47 L Hgb 13.4 Hct 39.5 L MCV 88.4 MCH 30.0 MCHC 33.9 RDW 13.1 RDW Differential 42.0 Plt Count 269 MPV 9.8 Immature Gran % (Auto) 0.200 Neut % (Auto) 49.8 Lymph % (Auto) 36.0 [place] % (Auto) 11.6 H Eos % (Auto) 2.1 Baso % (Auto) 0.3 Absolute Neuts (auto) 4.5 Absolute Lymphs (auto) 3.23 Total Counted Not Reportable PT 13.5 INR 1.0 APTT 35.0 Sodium 137 Potassium 3.7 Chloride 101 Carbon Dioxide 31.0 Anion Gap 5 BUN 11 Creatinine 0.90 Estim Creat Clear Calc 134.46 Est GFR (MDRD) Af Amer 124 Est GFR (MDRD) Non-Af 103 BUN/Creatinine Ratio 12.2 Glucose 90 Calcium 9.6 Magnesium 2.1 Total Bilirubin 0.70 AST 77 H ALT 90 H Alkaline Phosphatase 88 Troponin I < 0.015 Total Protein 8.5 H Albumin 4.0 Globulin 4.5 H Albumin/Globulin Ratio 0.9 Lipase 62 L Urine Color Urine Clarity Urine pH Ur Specific [place] Urine Protein Urine Glucose (UA) Urine Ketones Urine Occult Blood Urine Nitrite Urine Bilirubin Urine Urobilinogen Ur Leukocyte Esterase Urine RBC Urine WBC Ur Squamous Epith Cells Urine Bacteria Urine Mucus Urine Opiates Screen Urine Methadone Screen Ur Barbiturates Screen Ur Phencyclidine Scrn Ur Amphetamines Screen U Methamphetamin-MDMA U Benzodiazepines Scrn Urine Cocaine Screen U Cannabinoids Screen Ur Drug Screen Comment Ethyl Alcohol 09/24/17 09/24/17 09/24/17 17:50 18:14 18:14 WBC RBC Hgb Hct MCV MCH MCHC RDW RDW Differential Plt Count MPV Immature Gran % (Auto) Neut % (Auto) Lymph % (Auto) [place] % (Auto) Eos % (Auto) Baso % (Auto) Absolute Neuts (auto) Absolute Lymphs (auto) Total Counted PT INR APTT Sodium Potassium Chloride Carbon Dioxide Anion Gap BUN Creatinine Estim Creat Clear Calc Est GFR (MDRD) Af Amer Est GFR (MDRD) Non-Af BUN/Creatinine Ratio Glucose Calcium Magnesium Total Bilirubin AST ALT Alkaline Phosphatase Troponin I Total Protein Albumin Globulin Albumin/Globulin Ratio Lipase Urine Color Yellow Urine Clarity Sl. Cloudy Urine pH 6.5 Ur Specific [place] 1.015 Urine Protein 15 H Urine Glucose (UA) Normal Urine Ketones Negative Urine Occult Blood Negative Urine Nitrite Negative Urine Bilirubin Negative Urine Urobilinogen Normal Ur Leukocyte Esterase Negative Urine RBC 0 SEEN Urine WBC 0 SEEN Ur Squamous Epith Cells 0 SEEN Urine Bacteria RARE Urine Mucus 0 SEEN Urine Opiates Screen POSITIVE H Urine Methadone Screen NEGATIVE Ur Barbiturates Screen NEGATIVE Ur Phencyclidine Scrn NEGATIVE Ur Amphetamines Screen POSITIVE H U Methamphetamin-MDMA NEGATIVE U Benzodiazepines Scrn POSITIVE H Urine Cocaine Screen NEGATIVE U Cannabinoids Screen POSITIVE H Ur Drug Screen Comment Ethyl Alcohol < 3.0 Assessment/Plan All Active Problems Opiate withdrawal (Acute) 1. Acute heroin withdrawal Cina score of 16 I am very concerned that the patient has limited insight into his addiction given his frequent failed attempts for withdrawal treatment and. I impressed upon the patient that his addiction is not can be fixed with this hospitalization and that is going to require him to follow-up with doctors counselors sponsors and so forth. I told the patient to start acting rather than saying and showing that he is intent on improving himself but thus far all of his his attempts have yields no benefit that I can see. 2. Chronic benzodiazepine abuse Patient takes a brick of Xanax per day that equates at 2 mg per day. I will start the patient on Xanax 0.5 mg twice daily as needed for severe anxiety. Essentially, the plan would be for the patient to continue with that for a total week and then daily as needed for week and then every other day for a week. The patient has no primary care doctor so is unclear who will continue to prescribe that for him upon discharge as I do not feel the patient would be a good candidate to receive the control prescription without close monitoring for the high likelihood of diversion and abuse. I would not recommend the discharging hospitalist prescribe this patient any benzodiazepines upon discharge. I had the nurses in the emergency room try to contact the [facility] but they are not available as it is after 5:00. 3. Alcohol abuse Patient states that he drinks a sixpack of beer per day I am not planning on putting him on any Librium but will put him on thiamine and folate. If patient's withdrawal symptoms do get worse while he was here then consideration could be had for the patient going through acute alcohol withdrawal and then Librium or scheduled Ativan may be necessary. I am concerned the patient also has underlying psychiatric disorders any personality disorders that may portend difficulties in regards to patient actually receiving complete remission of his multiple drugs and alcohol. Code Visit Inpatient E&M: 01232 Init Hosp L2
--- NOTE | 2017-09-24 20:10 | HP.PCM_ITS ---
Problem List (1) Opiate withdrawal Status: Acute History of Present Illness Date of Admission: 09/24/17 Chief Complaint: heroin withdrawal The patient is a 32 year old M presents seeking treatment for heroin abuse. Patient's last use was at midnight this morning. Patient injects heroin. Additionally, he smokes marijuana, takes a brick of Xanax daily, smokes methamphetamines and drinks a sixpack of alcohol. Patient is recently moved up from [place] and was 1 to clean himself up because his family is upset. This is patient's multiple attempts at detox. Patient's from an overdose 10 years ago. Patient was being evaluated by Tere Lopez and then dropped off in the emergency room. According to the emergency room physician, no direct conversation was had between himself and tere lopez to explain why he was just dropped off in the emergency room rather than being admitted to the hospital. [ ] Past Medical History Past Medical History (Chronic Problems): Chronic Problems Marijuana abuse (Chronic) Cocaine abuse (Chronic) Depression (Chronic) Anxiety (Chronic) Hepatitis B (Chronic) Hepatitis C (Chronic) Heroin abuse (Chronic) Allergies codeine Allergy (Verified 09/24/17 17:02) Hives Home Medications: Ambulatory Orders Medication Instructions Recorded No Known/Unobtainable [No Known 09/14/16 Home Medications] Surgical History: no surgical history Psychiatric History: Anxiety, Depression Smoking Status: Never smoker Alcohol: Heavy Drugs: Heroin, Marijuana, - - Methamphetamines, Xanax - *Family History Maternal History Items: Diabetes Paternal History Items: No pertinent history Review of Systems Constitutional: Reports: Chills, Fever. Denies: Anorexia Eyes: Denies: Blurred vision, Double vision HEENT: Reports: - - Rhinitis. Denies: Head Aches, Sinus Congestion, Sinus Drainage Cardiovascular: Denies: Chest Pain, Palpitations Respiratory: Denies: Cough, Shortness of breath at rest, Sputum production Gastrointestinal: Denies: Abdominal Pain, Nausea, Vomiting Genitourinary: Denies: Dysuria Musculoskeletal: Denies: Joint Pain, Joint Tenderness Skin: Denies: Dryness, Jaundice Neurological: Denies: Numbness, Tingling, Focal weakness Psychiatric: Reports: Anxiety, Depression Hematologic/ Lymphatic: Denies: Easy Bruising, Easy Bleeding, Hx of blood clot Comment: All review of systems are negative except as mentioned in the history of present illness and the other review of systems. VTE Information - Inpt Only VTE Present on Admission: No VTE Mechan Device Prophylaxis: None VTE Pharm Prophylaxis ordered?: No Reason prophylaxis not ordered:: Procedure Not Indicated - Physical Exam General: Alert, Cooperative, No apparent distress, - - Anxious. Afebrile. HEENT: Atraumatic, Normocephalic, - - No scleral icterus Oral: Moist Mucosa, No Gingival or Mucosal Lesions/ Ulcerations Neck: No Nodes, Thyroid Normal Size and Texture Lungs: Clear to auscultation, Normal air movement, No rhonchi, No wheeze Cardiovascular: Regular rate, Regular Rhythm, Normal S1, Normal S2, No murmurs Abdomen: Bowel Sounds Present, Soft, Non Tender, Non-Distended, No Hepato- splenomegaly Extremities: No edema, No Calf Tenderness Skin: No rashes, No breakdown Musculoskeletal: No Tenderness to Palpation of Joints or Extremities, No Muscle Wasting Psych/Mental Status: Normal Affect, Appropriate Vital Signs Temp Pulse Resp BP Pulse Ox 36.9 C 84 23 H 115/68 99 09/24/17 16:59 09/24/17 19:00 09/24/17 19:00 09/24/17 18:05 09/24/17 19:00 Oxygen Delivery Method Room Air Weight: 85.5 kg Body Mass Index (BMI) 24.2 Laboratory Tests Past 24 Hrs 09/24/17 09/24/17 09/24/17 17:50 17:50 17:50 WBC 9.0 RBC 4.47 L Hgb 13.4 Hct 39.5 L MCV 88.4 MCH 30.0 MCHC 33.9 RDW 13.1 RDW Differential 42.0 Plt Count 269 MPV 9.8 Immature Gran % (Auto) 0.200 Neut % (Auto) 49.8 Lymph % (Auto) 36.0 [place] % (Auto) 11.6 H Eos % (Auto) 2.1 Baso % (Auto) 0.3 Absolute Neuts (auto) 4.5 Absolute Lymphs (auto) 3.23 Total Counted Not Reportable PT 13.5 INR 1.0 APTT 35.0 Sodium 137 Potassium 3.7 Chloride 101 Carbon Dioxide 31.0 Anion Gap 5 BUN 11 Creatinine 0.90 Estim Creat Clear Calc 134.46 Est GFR (MDRD) Af Amer 124 Est GFR (MDRD) Non-Af 103 BUN/Creatinine Ratio 12.2 Glucose 90 Calcium 9.6 Magnesium 2.1 Total Bilirubin 0.70 AST 77 H ALT 90 H Alkaline Phosphatase 88 Troponin I < 0.015 Total Protein 8.5 H Albumin 4.0 Globulin 4.5 H Albumin/Globulin Ratio 0.9 Lipase 62 L Urine Color Urine Clarity Urine pH Ur Specific [place] Urine Protein Urine Glucose (UA) Urine Ketones Urine Occult Blood Urine Nitrite Urine Bilirubin Urine Urobilinogen Ur Leukocyte Esterase Urine RBC Urine WBC Ur Squamous Epith Cells Urine Bacteria Urine Mucus Urine Opiates Screen Urine Methadone Screen Ur Barbiturates Screen Ur Phencyclidine Scrn Ur Amphetamines Screen U Methamphetamin-MDMA U Benzodiazepines Scrn Urine Cocaine Screen U Cannabinoids Screen Ur Drug Screen Comment Ethyl Alcohol 09/24/17 09/24/17 09/24/17 17:50 18:14 18:14 WBC RBC Hgb Hct MCV MCH MCHC RDW RDW Differential Plt Count MPV Immature Gran % (Auto) Neut % (Auto) Lymph % (Auto) [place] % (Auto) Eos % (Auto) Baso % (Auto) Absolute Neuts (auto) Absolute Lymphs (auto) Total Counted PT INR APTT Sodium Potassium Chloride Carbon Dioxide Anion Gap BUN Creatinine Estim Creat Clear Calc Est GFR (MDRD) Af Amer Est GFR (MDRD) Non-Af BUN/Creatinine Ratio Glucose Calcium Magnesium Total Bilirubin AST ALT Alkaline Phosphatase Troponin I Total Protein Albumin Globulin Albumin/Globulin Ratio Lipase Urine Color Yellow Urine Clarity Sl. Cloudy Urine pH 6.5 Ur Specific [place] 1.015 Urine Protein 15 H Urine Glucose (UA) Normal Urine Ketones Negative Urine Occult Blood Negative Urine Nitrite Negative Urine Bilirubin Negative Urine Urobilinogen Normal Ur Leukocyte Esterase Negative Urine RBC 0 SEEN Urine WBC 0 SEEN Ur Squamous Epith Cells 0 SEEN Urine Bacteria RARE Urine Mucus 0 SEEN Urine Opiates Screen POSITIVE H Urine Methadone Screen NEGATIVE Ur Barbiturates Screen NEGATIVE Ur Phencyclidine Scrn NEGATIVE Ur Amphetamines Screen POSITIVE H U Methamphetamin-MDMA NEGATIVE U Benzodiazepines Scrn POSITIVE H Urine Cocaine Screen NEGATIVE U Cannabinoids Screen POSITIVE H Ur Drug Screen Comment Ethyl Alcohol < 3.0 Assessment/Plan All Active Problems Opiate withdrawal (Acute) 1. Acute heroin withdrawal * Cina score of 16 * I am very concerned that the patient has limited insight into his addiction given his frequent failed attempts for withdrawal treatment and. I impressed upon the patient that his addiction is not can be fixed with this hospitalization and that is going to require him to follow-up with doctors counselors sponsors and so forth. I told the patient to start acting rather than saying and showing that he is intent on improving himself but thus far all of his his attempts have yields no benefit that I can see. 2. Chronic benzodiazepine abuse * Patient takes a brick of Xanax per day that equates at 2 mg per day. I will start the patient on Xanax 0.5 mg twice daily as needed for severe anxiety. Essentially, the plan would be for the patient to continue with that for a total week and then daily as needed for week and then every other day for a week. * The patient has no primary care doctor so is unclear who will continue to prescribe that for him upon discharge as I do not feel the patient would be a good candidate to receive the control prescription without close monitoring for the high likelihood of diversion and abuse. I would not recommend the discharging hospitalist prescribe this patient any benzodiazepines upon discharge. * I had the nurses in the emergency room try to contact the [facility] but they are not available as it is after 5:00. 3. Alcohol abuse * Patient states that he drinks a sixpack of beer per day * I am not planning on putting him on any Librium but will put him on thiamine and folate. * If patient's withdrawal symptoms do get worse while he was here then consideration could be had for the patient going through acute alcohol withdrawal and then Librium or scheduled Ativan may be necessary. I am concerned the patient also has underlying psychiatric disorders any personality disorders that may portend difficulties in regards to patient actually receiving complete remission of his multiple drugs and alcohol. Code Visit Inpatient E&M: 11602 Init Hosp L2
[2017-09-24 20:55] VITALS: BMI 24.2
[2017-09-24 21:20] VITALS: BP 116/89; PULSE 80; RESP 16; TEMP 37.1; O2SAT 100
[2017-09-24 22:15] VITALS: RESP 16
[2017-09-24] MEDS: Thiamine Hydrochloride 100 MG Tablet PO (22:17)
[2017-09-24] MEDS: cloNIDine HCl 0.1 MG Tablet PO (22:17)
[2017-09-24] MEDS: ALPRAZolam 0.5 MG Tablet PO (22:17)
[2017-09-24] MEDS: Dicyclomine 10 MG Capsule 20 MG PO (22:17)
[2017-09-24] MEDS: 0.9% NaCl Peripheral Flush Adult/Peds IV (22:17)
[2017-09-24] MEDS: traZODone 50 MG Tablet PO (22:17)
[2017-09-24] MEDS: Lactated Ringers 1,000 ML 125 ML IV (22:17)
[2017-09-24] MEDS: Buprenorphine HCl 2 MG TAB.SUBL SL (22:17)
[2017-09-24] MEDS: Pramipexole Di-HCl 0.25 MG Tablet PO (23:32)
[2017-09-24] MEDS: hydrOXYzine PAM 25 MG Capsule 50 MG PO (23:32)
--- NOTE | 2017-09-25 00:02 | ED.VISSUMM ---
- ER Visit Summary Date of Service: 09/25/17 Chief Complaint: [facility] admission History of Present Illness: The patient is a 32 M who is brought to the emergency department by Kristopher Whitepages. Patient states he uses methamphetamines, Xanax, heroin, and alcohol. He has had 2 previous admissions within the past year here for detox. He states that he recently was out in [place] for her job. There he got readdicted to medications and street drugs. He states that he has been in town for about a week and has not seen anybody because he is embarrassed of his habit. He would like detox. Physical Examination: Afebrile vital signs are stable Gen: Well-nourished well-developed Head: Normocephalic atraumatic Eyes: Perrl EOMI ENT: TMs clear no rhinorrhea moist mucous membranes Neck: Supple no lymphadenopathy no JVD nontender CVS: Regular rate and tachycardic rhythm no murmurs normal S1-S2 Respiratory: No distress clear to auscultation bilaterally chest nontender Abdomen: Soft nontender nondistended normal bowel sounds no masses Back: Nontender Extremity: Nontender no edema Skin: Normal color no rash Neuro: Hyper alert orientated ?3 CN II-XII intact normal strength sensation reflexes gait cerebellar Psych: Agitated Emergency Department Course and Treatment: Patient was medically cleared. His drug screen is positive for opiates and amphetamines benzodiazepines and marijuana. Dr. Palomo will be admitted for the hospitalist service today. Impression: 1. Polysubstance drug abuse This note was generated with [employer] dictation software. It may contain incorrect words, spelling, and punctuation that were not noted in review of the chart prior to signing ED Disposition - Plan for ED Patient: Disposition: Acute Care Hospital [facility] Chief Complaint: Substance Abuse
--- NOTE | 2017-09-25 00:05 | ED.DCSUM_ITS ---
- ER Visit Summary Date of Service: 09/25/17 Chief Complaint: [facility] admission History of Present Illness: The patient is a 32 M who is brought to the emergency department by Kristopher Mavizon. Patient states he uses methamphetamines, Xanax, heroin, and alcohol. He has had 2 previous admissions within the past year here for detox. He states that he recently was out in [place] for her job. There he got readdicted to medications and street drugs. He states that he has been in town for about a week and has not seen anybody because he is embarrassed of his habit. He would like detox. Physical Examination: Afebrile vital signs are stable Gen: Well-nourished well-developed Head: Normocephalic atraumatic Eyes: Perrl EOMI ENT: TMs clear no rhinorrhea moist mucous membranes Neck: Supple no lymphadenopathy no JVD nontender CVS: Regular rate and tachycardic rhythm no murmurs normal S1-S2 Respiratory: No distress clear to auscultation bilaterally chest nontender Abdomen: Soft nontender nondistended normal bowel sounds no masses Back: Nontender Extremity: Nontender no edema Skin: Normal color no rash Neuro: Hyper alert orientated ?3 CN II-XII intact normal strength sensation reflexes gait cerebellar Psych: Agitated Emergency Department Course and Treatment: Patient was medically cleared. His drug screen is positive for opiates and amphetamines benzodiazepines and marijuana. Dr. Palomo will be admitted for the hospitalist service today. Impression: 1. Polysubstance drug abuse This note was generated with [employer] dictation software. It may contain incorrect words, spelling, and punctuation that were not noted in review of the chart prior to signing ED Disposition - Plan for ED Patient: Disposition: Acute Care Hospital [facility] Chief Complaint: Substance Abuse
[2017-09-25 01:06] LABS: M R Staph aureus DNA By PCR Negative (Negative); Probe Check PASS; Specimen Processing Control PASS
[2017-09-25 02:00] VITALS: BP 107/67; PULSE 57; RESP 14; TEMP 36.4; O2SAT 100
[2017-09-25] MEDS: Methocarbamol 750 MG Tablet PO ×2 (05:21→16:30)
[2017-09-25] MEDS: Buprenorphine HCl 2 MG TAB.SUBL SL ×3 (05:22→22:22)
[2017-09-25 05:23] VITALS: BP 105/73; PULSE 58; RESP 14; TEMP 36.3
--- NOTE | 2017-09-25 09:01 | PCM.PROGNOTE ---
Subjective: Chief complaint: Follow-up after admission for acute opioid withdrawal. Patient seen and examined. No acute events overnight. This morning, his restless, shaky and anxious. He complains of bilateral leg pain and aches. He had diarrhea 3 times overnight. His vital signs are stable. - Physical Exam General: Alert, Oriented x3, Cooperative, - - Restless. HEENT: Atraumatic, PERRLA, EOMI, Normocephalic Oral: Moist Mucosa, No Gingival or Mucosal Lesions/ Ulcerations Neck: Supple, No JVD, Negative Carotid Bruits, Trachea Midline, Thyroid Normal Size and Texture Lungs: Clear to auscultation, Normal air movement, No rhonchi, No wheeze, No rales Cardiovascular: Regular rate, Regular Rhythm, Normal S1, Normal S2, PMI Normal Abdomen: Bowel Sounds Present, Soft, Non Tender, Non-Distended, No Hepato-splenomegaly Extremities: No clubbing, No cyanosis, No edema Skin: No rashes, No breakdown Lymphatic: No Cervical, Supraclavicular, or Inguinal Adenopathy Neurological: Cranial nerves II-XII grossly intact, Motor Exam 5/5 strength throughout Psych/Mental Status: Anxious, Restless Vital Signs Temp Pulse Resp BP Pulse Ox 97.3 F L 58 L 14 105/73 100 09/25/17 05:23 09/25/17 05:23 09/25/17 05:23 09/25/17 05:23 09/25/17 02:00 Oxygen Delivery Method Room Air Weight: 188 lb 7.924 oz Body Mass Index (BMI) 24.2 Intake and Output for Last 24 Hours 09/23/17 09/24/17 09/25/17 23:59 23:59 23:59 Intake Total 1041 / 1041 Balance 1041 / 1041 Laboratory Tests Past 24 Hrs 09/24/17 09/25/17 23:00 06:21 HCV RNA Qual (PCR) Pending MRSA (PCR) Negative Medical Necessity - Tobacco Use Smoking Status: Never smoker Assessment/Plan All Active Problems Opiate withdrawal (Acute) This is a 32 years old male patient admitted for acute opioid withdrawal for medical stabilization. #1 acute opiate withdrawal: Started on [facility] protocol with tapering course of Subutex, as needed Catapres, Bentyl, Vistaril, Imodium, methocarbamol, Zofran, Mirapex and trazodone. His vital signs stable. His routine blood work is unremarkable. LFT revealed minimally elevated liver transaminases which is likely because of alcohol drinking. Troponin is negative. Lipase is normal. Urine drug screen is positive for opioids, amphetamines, benzodiazepines and cannabinoids. Blood alcohol of less than 3. Patient still symptomatic, restless, anxious. Underlying psychiatric issues cannot be ruled out. And to continue same treatment. #2 chronic benzodiazepine abuse: Reportedly, patient has been taking high-dose of Xanax every day. At this time, he is on small dose of Xanax 0.5 mg p.o. twice daily as needed for anxiety. He is anxious, restless. Plan to continue same treatment. Patient has no PCP and it is not clear from where this patient is getting his Xanax. #3 alcohol abuse: He is on folic acid and thiamine as well as multivitamins. #4 DVT prophylaxis: Low risk patient, no prophylaxis indicated. This note was generated with [employer] dictation software. It may contain incorrect words, spelling, and punctuation that were not noted in checking the note before signing. Code Visit Inpatient E&M: 35706 Subs Hosp L2
--- NOTE | 2017-09-25 09:13 | PN_ITS ---
Subjective: Chief complaint: Follow-up after admission for acute opioid withdrawal. Patient seen and examined. No acute events overnight. This morning, his restless, shaky and anxious. He complains of bilateral leg pain and aches. He had diarrhea 3 times overnight. His vital signs are stable. - Physical Exam General: Alert, Oriented x3, Cooperative, - - Restless. HEENT: Atraumatic, PERRLA, EOMI, Normocephalic Oral: Moist Mucosa, No Gingival or Mucosal Lesions/ Ulcerations Neck: Supple, No JVD, Negative Carotid Bruits, Trachea Midline, Thyroid Normal Size and Texture Lungs: Clear to auscultation, Normal air movement, No rhonchi, No wheeze, No rales Cardiovascular: Regular rate, Regular Rhythm, Normal S1, Normal S2, PMI Normal Abdomen: Bowel Sounds Present, Soft, Non Tender, Non-Distended, No Hepato- splenomegaly Extremities: No clubbing, No cyanosis, No edema Skin: No rashes, No breakdown Lymphatic: No Cervical, Supraclavicular, or Inguinal Adenopathy Neurological: Cranial nerves II-XII grossly intact, Motor Exam 5/5 strength throughout Psych/Mental Status: Anxious, Restless Vital Signs Temp Pulse Resp BP Pulse Ox 97.3 F L 58 L 14 105/73 100 09/25/17 05:23 09/25/17 05:23 09/25/17 05:23 09/25/17 05:23 09/25/17 02:00 Oxygen Delivery Method Room Air Weight: 188 lb 7.924 oz Body Mass Index (BMI) 24.2 Intake and Output for Last 24 Hours 09/23/17 09/24/17 09/25/17 23:59 23:59 23:59 Intake Total 1041 / 1041 Balance 1041 / 1041 Laboratory Tests Past 24 Hrs 09/24/17 09/25/17 23:00 06:21 HCV RNA Qual (PCR) Pending MRSA (PCR) Negative Medical Necessity - Tobacco Use Smoking Status: Never smoker Assessment/Plan All Active Problems Opiate withdrawal (Acute) This is a 32 years old male patient admitted for acute opioid withdrawal for medical stabilization. #1 acute opiate withdrawal: Started on [facility] protocol with tapering course of Subutex, as needed Catapres, Bentyl, Vistaril, Imodium, methocarbamol, Zofran , Mirapex and trazodone. His vital signs stable. His routine blood work is unremarkable. LFT revealed minimally elevated liver transaminases which is likely because of alcohol drinking. Troponin is negative. Lipase is normal. Urine drug screen is positive for opioids, amphetamines, benzodiazepines and cannabinoids. Blood alcohol of less than 3. Patient still symptomatic, restless, anxious. Underlying psychiatric issues cannot be ruled out. And to continue same treatment. #2 chronic benzodiazepine abuse: Reportedly, patient has been taking high-dose of Xanax every day. At this time, he is on small dose of Xanax 0.5 mg p.o. twice daily as needed for anxiety. He is anxious, restless. Plan to continue same treatment. Patient has no PCP and it is not clear from where this patient is getting his Xanax. #3 alcohol abuse: He is on folic acid and thiamine as well as multivitamins. #4 DVT prophylaxis: Low risk patient, no prophylaxis indicated. This note was generated with [employer] dictation software. It may contain incorrect words, spelling, and punctuation that were not noted in checking the note before signing. Code Visit Inpatient E&M: 91553 Subs Hosp L2
[2017-09-25 10:02] VITALS: BP 139/84; PULSE 99; RESP 18; TEMP 36.7
[2017-09-25] MEDS: ALPRAZolam 0.5 MG Tablet PO (10:13)
[2017-09-25] MEDS: Thiamine Hydrochloride 100 MG Tablet PO (10:13)
[2017-09-25] MEDS: Dicyclomine 10 MG Capsule 20 MG PO (10:13)
[2017-09-25] MEDS: Ondansetron ODT 4 MG Tablet PO ×2 (10:13→16:31)
[2017-09-25] MEDS: Folic Acid 1 MG Tablet PO (10:13)
[2017-09-25] MEDS: cloNIDine HCl 0.1 MG Tablet PO ×2 (10:13→16:30)
[2017-09-25] MEDS: hydrOXYzine PAM 25 MG Capsule 50 MG PO (12:30)
[2017-09-25] MEDS: Pramipexole Di-HCl 0.25 MG Tablet PO (12:30)
[2017-09-25] MEDS: Ibuprofen 600 MG Tablet PO (12:30)
[2017-09-25 12:32] VITALS: BP 125/86; PULSE 79; RESP 18; TEMP 36.9
[2017-09-25 16:28] VITALS: BP 124/97; PULSE 90; RESP 18; TEMP 37.7; O2SAT 100
[2017-09-25] MEDS: traZODone 50 MG Tablet PO (22:23)
[2017-09-25] MEDS: QUEtiapine 25 MG Tablet 50 MG PO (22:26)
[2017-09-25 22:29] VITALS: BP 129/86; PULSE 60; RESP 16; TEMP 36.6; O2SAT 100
[2017-09-26] VITALS (7 sets, daily range): BP systolic 130–146; BP diastolic 68–93; PULSE 70–88; RESP 16–20; TEMP 36.6–37.1; O2SAT 98–100
[2017-09-26] MEDS: Ondansetron ODT 4 MG Tablet PO ×2 (02:21→22:14)
[2017-09-26] MEDS: ALPRAZolam 0.5 MG Tablet PO (02:38)
[2017-09-26] MEDS: Buprenorphine HCl 2 MG TAB.SUBL SL ×2 (05:39→14:10)
--- NOTE | 2017-09-26 08:48 | PCM.PROGNOTE ---
Subjective: Chief complaint: Follow-up after admission for acute opioid withdrawal. Patient seen and examined. No acute events overnight. Today, he reported minimal improvement of his symptoms but still complaining of restlessness and anxiety. Denies any more abdominal cramps or diarrhea. Vital signs are stable. - Physical Exam General: Alert, Oriented x3, Cooperative, - - Restless HEENT: Atraumatic, PERRLA Oral: Moist Mucosa, No Gingival or Mucosal Lesions/ Ulcerations Neck: Supple, No JVD, Negative Carotid Bruits, Trachea Midline, Thyroid Normal Size and Texture Lungs: Clear to auscultation, Normal air movement, No rhonchi, No wheeze, No rales Cardiovascular: Regular rate, Regular Rhythm, Normal S1, Normal S2, PMI Normal Abdomen: Bowel Sounds Present, Soft, Non Tender, Non-Distended, No Hepato-splenomegaly Extremities: No clubbing, No cyanosis, No edema Skin: No rashes, No breakdown Lymphatic: No Cervical, Supraclavicular, or Inguinal Adenopathy Neurological: Cranial nerves II-XII grossly intact, Neuro grossly intact Psych/Mental Status: Normal Affect, Appropriate, Restless Vital Signs Temp Pulse Resp BP Pulse Ox 98.6 F 70 18 146/93 H 100 09/26/17 02:45 09/26/17 02:45 09/26/17 02:45 09/26/17 02:45 09/25/17 22:29 Oxygen Delivery Method Room Air Weight: 188 lb 7.924 oz Body Mass Index (BMI) 24.2 Intake and Output for Last 24 Hours 09/24/17 09/25/17 09/26/17 23:59 23:59 23:59 Intake Total 2064 150 / 150 Balance 2064 150 / 150 Medical Necessity - Tobacco Use Smoking Status: Never smoker Assessment/Plan All Active Problems Opiate withdrawal (Acute) This is a 32 years old male patient admitted for acute opioid withdrawal for medical stabilization. #1 acute opiate withdrawal: Remained on [facility] protocol with tapering course of Subutex, as needed Catapres, Bentyl, Vistaril, Imodium, methocarbamol, Zofran, Mirapex and trazodone. He reported minimal improvement of his symptoms. His vital signs stable. His routine blood work is unremarkable. LFT revealed minimally elevated liver transaminases which is likely because of alcohol drinking. Troponin is negative. Lipase is normal. Urine drug screen is positive for opioids, amphetamines, benzodiazepines and cannabinoids. Blood alcohol of less than 3. Plan to continue same treatment. #2 chronic benzodiazepine abuse: Reportedly, patient has been taking high-dose of Xanax every day. At this time, he is on small dose of Xanax 0.5 mg p.o. twice daily as needed for anxiety. Patient has no PCP and it is not clear from where this patient is getting his Xanax. #3 alcohol abuse: He is on folic acid and thiamine as well as multivitamins. No evidence of acute alcohol withdrawal. #4 DVT prophylaxis: Low risk patient, no prophylaxis indicated. This note was generated with [employer] dictation software. It may contain incorrect words, spelling, and punctuation that were not noted in checking the note before signing. Code Visit Inpatient E&M: 83629 Subs Hosp L2
--- NOTE | 2017-09-26 08:51 | PN_ITS ---
Subjective: Chief complaint: Follow-up after admission for acute opioid withdrawal. Patient seen and examined. No acute events overnight. Today, he reported minimal improvement of his symptoms but still complaining of restlessness and anxiety. Denies any more abdominal cramps or diarrhea. Vital signs are stable. - Physical Exam General: Alert, Oriented x3, Cooperative, - - Restless HEENT: Atraumatic, PERRLA Oral: Moist Mucosa, No Gingival or Mucosal Lesions/ Ulcerations Neck: Supple, No JVD, Negative Carotid Bruits, Trachea Midline, Thyroid Normal Size and Texture Lungs: Clear to auscultation, Normal air movement, No rhonchi, No wheeze, No rales Cardiovascular: Regular rate, Regular Rhythm, Normal S1, Normal S2, PMI Normal Abdomen: Bowel Sounds Present, Soft, Non Tender, Non-Distended, No Hepato- splenomegaly Extremities: No clubbing, No cyanosis, No edema Skin: No rashes, No breakdown Lymphatic: No Cervical, Supraclavicular, or Inguinal Adenopathy Neurological: Cranial nerves II-XII grossly intact, Neuro grossly intact Psych/Mental Status: Normal Affect, Appropriate, Restless Vital Signs Temp Pulse Resp BP Pulse Ox 98.6 F 70 18 146/93 H 100 09/26/17 02:45 09/26/17 02:45 09/26/17 02:45 09/26/17 02:45 09/25/17 22:29 Oxygen Delivery Method Room Air Weight: 188 lb 7.924 oz Body Mass Index (BMI) 24.2 Intake and Output for Last 24 Hours 09/24/17 09/25/17 09/26/17 23:59 23:59 23:59 Intake Total 2064 150 / 150 Balance 2064 150 / 150 Medical Necessity - Tobacco Use Smoking Status: Never smoker Assessment/Plan All Active Problems Opiate withdrawal (Acute) This is a 32 years old male patient admitted for acute opioid withdrawal for medical stabilization. #1 acute opiate withdrawal: Remained on [facility] protocol with tapering course of Subutex, as needed Catapres, Bentyl, Vistaril, Imodium, methocarbamol , Zofran, Mirapex and trazodone. He reported minimal improvement of his symptoms. His vital signs stable. His routine blood work is unremarkable. LFT revealed minimally elevated liver transaminases which is likely because of alcohol drinking. Troponin is negative. Lipase is normal. Urine drug screen is positive for opioids, amphetamines, benzodiazepines and cannabinoids. Blood alcohol of less than 3. Plan to continue same treatment. #2 chronic benzodiazepine abuse: Reportedly, patient has been taking high-dose of Xanax every day. At this time, he is on small dose of Xanax 0.5 mg p.o. twice daily as needed for anxiety. Patient has no PCP and it is not clear from where this patient is getting his Xanax. #3 alcohol abuse: He is on folic acid and thiamine as well as multivitamins. No evidence of acute alcohol withdrawal. #4 DVT prophylaxis: Low risk patient, no prophylaxis indicated. This note was generated with [employer] dictation software. It may contain incorrect words, spelling, and punctuation that were not noted in checking the note before signing. Code Visit Inpatient E&M: 47406 Subs Hosp L2
[2017-09-26] MEDS: Thiamine Hydrochloride 100 MG Tablet PO (09:43)
[2017-09-26] MEDS: Folic Acid 1 MG Tablet PO (09:43)
[2017-09-26] MEDS: Multivitamins,Therapeutic Tablet 1 TABLET PO (09:43)
[2017-09-26] MEDS: QUEtiapine 25 MG Tablet 50 MG PO (22:10)
[2017-09-26] MEDS: traZODone 50 MG Tablet PO (22:10)
[2017-09-27] MEDS: Buprenorphine HCl 2 MG TAB.SUBL SL (02:26)
[2017-09-27 02:28] VITALS: BP 129/95; PULSE 76; RESP 18; TEMP 36.7
--- NOTE | 2017-09-27 09:14 | DCINST_ITS ---
You will use the following diet at home:: Regular Your food should be the consistency of: Regular Discharge Activity: Return to Normal Activity Weight Bearing Status: Full weight bearing Call your doctor if you observe: Fever of 101 or Higher, Shortness of breath, Dizziness, Fainting spells, Chest pain, Increased palpitations (irregular heartbeat), Uncontrolled pain Instructions: Understanding Anxiety Disorders, Depression: Tips to Help Yourself Additional Instructions: Please follow-up with the [facility] program. Please follow-up with your psychiatrist. Allergies/Adverse Reactions: Allergies codeine Allergy (Verified 09/24/17 17:02) Hives Medications to take at Discharge No Known/Unobtainable [No Known Home Medications] 09/14/16 Primary Care Physician: Care Physician,No Primary [Primary Care Provider] - Please follow up with your Primary Care Physician in: 2-4 weeks. Test Results: Test results from this visit will be discussed in further detail at your follow- up appointment, if applicable.
--- NOTE | 2017-09-27 09:53 | NURSING ---
Hospitalist rounded with this nurse and asked if today was patients last day and when would taper be done, this nurse told hopitalist that taper will be completed @ 1400, PT also informed that hospitalist planned to discharge and that subutex taper would be finished @ 1400 but could be given @1300 and once he took his medication we could give discharge papers to pt, pt stated understanding and asked for supplies to shower which was given. Roughly 30 minutes later pt was witness at nurses station with belongings. Pt stated he wanted to leave. This nurse stated last subutex was due at 1400, charge nurse also at nurses station and stated we could txt hospitalist and see if we could discharge w/o last dose. Pt stated he did not wish to wait and that he needed to leave right this seconded and just wanted to leave AMA. x2 nurses tried to talk pt into waiting till 1300 or waiting will we could get response from hospitalist. PT refused signed AMA paperwork and left the floor
--- NOTE | 2017-09-27 14:16 | PCM.DC.SUM ---
Discharge Date and Diagnosis Date of Admission: 09/24/17 Date of Discharge: 09/27/17 - Primary Discharge Diagnosis #1 acute opioid withdrawal, admitted for medical stabilization. #2 suspected anxiety disorder/bipolar disorder, recommended follow-up with psychiatry as outpatient. #3 chronic benzodiazepine abuse. - Secondary Discharge Diagnosis Chronic Problems Marijuana abuse (Chronic) Cocaine abuse (Chronic) Depression (Chronic) Anxiety (Chronic) Hepatitis B (Chronic) Hepatitis C (Chronic) Heroin abuse (Chronic) Hospital Course and Treatment Operations: None Procedures: None Summary of Care Provided: Patient seen and examined on the day of discharge and appeared to be stable to be discharged home. He reported improvement of his symptoms, feeling more comfortable, less shaky and restless. His vital signs are stable. - Physical Exam General: Alert, Oriented x3, Cooperative, No apparent distress. HEENT: Atraumatic, PERRLA, EOMI. Neck: Supple, No JVD, Negative Carotid Bruits, Trachea Midline, Thyroid Normal. Lungs: Clear to auscultation, Normal air movement, No rhonchi, No wheeze, No rales. Cardiovascular: Regular rate, Regular Rhythm, Normal S1, Normal S2, PMI Normal. Abdomen: Bowel Sounds Present, Soft, Non Tender, Non-Distended, No Hepato-splenomegaly. Extremities: No clubbing, No cyanosis, No edema Skin: No rashes, No breakdown Neurological: Neuro grossly intact Vital Signs are stable. Hospital course: The patient is a 32 year old M admitted for acute opioid withdrawal for medical stabilization. He was treated with [facility] protocol with tapering course of Subutex, as needed Catapres, Bentyl, Vistaril, Imodium, methocarbamol, Zofran, Mirapex and trazodone. His routine blood work is unremarkable. His LFT revealed slightly elevated liver transaminases which is likely due to chronic alcohol abuse. His lipase was normal. His urine drug screen was positive for opioids, amphetamines, benzodiazepines and cannabinoids. His blood alcohol level was less than 3. With above-mentioned treatment, patient symptoms improved and he felt better. On the day of discharge, patient requests to stay until his last of Subutex which would be at 2 PM but patient left the hospital early and he did not receive his last dose of Subutex. Actually, he signed AMA documents and he left the hospital and he does not wait for the last dose. I spoke with the patient in details about his suspected anxiety disorder as well as bipolar disorder. He mentioned that he used to see a psychiatrist in [facility] who prescribed and anxiety and depression medicine that he took for some time and stopped taking them but he never followed up with psychiatry since then. I highly recommended that patient should go and follow-up with psychiatry as outpatient. Discharge Activity: Return to Normal Activity Weight Bearing Status: Full weight bearing Call your doctor if you observe: Fever of 101 or Higher, Shortness of breath, Dizziness, Fainting spells, Chest pain, Increased palpitations (irregular heartbeat), Uncontrolled pain Home Medications: Medications to take at Discharge No Known/Unobtainable [No Known Home Medications] 09/14/16 Primary Care Physician: Care Physician,No Primary [Primary Care Provider] - Please follow up with your Primary Care Physician in: 2-4 weeks. Patient Instructions: Depression: Tips to Help Yourself, Understanding Anxiety Disorders Disposition: Home Minutes spent on discharge:: 26 Patient Condition:: Stable Medical Necessity - Tobacco Use Smoking Status: Never smoker Meaningful Use Info Meaningful Use Diagnoses (Choose all that apply): None applicable Code Visit Inpatient E&M: 28014 Disch Hosp
== END 2017-09-27 09:29 | disposition left against medical advice (07) | DRG 433 ==
LOC: ED 18:09 → MS3 20:12
PROVIDERS: Hospitalist; Emergency Provider Emergency Medicine; Visit Provider Hospitalist
DX: F11.23 Opioid dependence with withdrawal (principal); B18.1 Chronic viral hepatitis B without delta-agent; B18.2 Chronic viral hepatitis C; F13.10 Sedative, hypnotic or anxiolytic abuse, uncomplicated; F10.10 Alcohol abuse, uncomplicated; F12.10 Cannabis abuse, uncomplicated; F14.10 Cocaine abuse, uncomplicated; F15.10 Other stimulant abuse, uncomplicated; Y90.9 Presence of alcohol in blood, level not specified; F31.9 Bipolar disorder, unspecified; F41.9 Anxiety disorder, unspecified; Z72.0 Tobacco use
CPT/HCPCS: 36415; 80053; 80307; 80320; 81001; 83690; 83735; 84484; 85025; 85610; 85730; 87521; 87641; 93005; 97802; 99283; J7120; A4216; G0480

== ENCOUNTER 2018-06-24 16:13 | Observation (INO) | payer MEDICAID, SELFPAY ==
[2017-09-24 20:55] VITALS: BMI 24.2
--- NOTE | 2018-06-24 16:17 | PCM.HP.STD ---
Problem List (1) Opiate withdrawal Status: Acute (2) Marijuana abuse Status: Chronic (3) Depression Status: Chronic Qualifiers: Depression Type: unspecified Qualified Code(s): F32.9 - Major depressive disorder, single episode, unspecified (4) Anxiety Status: Chronic (5) Hepatitis B Status: Chronic Qualifiers: Viral hepatitis chronicity: unspecified (6) Hepatitis C Status: Chronic Qualifiers: Viral hepatitis chronicity: unspecified Hepatic coma status: without hepatic coma Qualified Code(s): B19.20 - Unspecified viral hepatitis C without hepatic coma (7) Heroin abuse Status: Chronic History of Present Illness Date of Admission: 06/24/18 Chief Complaint: Acute Opiate Withdrawal The patient is a 33 y/o M w/ PMHx: Anxiety and Depression, Known Hepatitis B and C, History of MRSA, Heroin IVDA (usual 2 gm daily, last usage 06/23/18 2:00 am, 3/4 gm usage) who presents to the [facility] at [facility] on 06/24/18 w/ noted opiate withdrawal onset starting 06/24/18 following last dose as noted 06/23/18 2:00 am with abdominal pain/cramping, nausea with dry heaving, generalized body aches and pains, rhinorrhea, fatigue, restlessness, sweating, yawning. Patient interested in attaining clean status. He has been through the program twice prior to this and notes he had remained clean x 6 months but started using again. He notes that work is not his usage region. His parents are supportive and do not use drugs. Past Medical History Past Medical History (Chronic Problems): Chronic Problems Marijuana abuse (Chronic) Cocaine abuse (Chronic) Depression (Chronic) Anxiety (Chronic) Hepatitis B (Chronic) Hepatitis C (Chronic) Heroin abuse (Chronic) Allergies codeine Allergy (Verified 09/24/17 17:02) Hives Home Medications: Ambulatory Orders Medication Instructions Recorded No Known/Unobtainable [No Known 09/14/16 Home Medications] Surgical History: - - [place] teeth extraction. Psychiatric History: Anxiety, Depression Lives: Alone - Patient had been however his is also a heroin user and following OD. Smoking Status: Never smoker Tobacco Use: Non-smoker Alcohol: Heavy - Patient does admit to weekend alcohol binging. Drugs: Heroin - Patient with history of ongoing heroin use, routinely 2 g daily. From prior documented history also noted prior usage of cocaine which she does not admit to at this time. - *Family History Maternal History Items: Diabetes Paternal History Items: Hypertension Review of Systems Constitutional: Reports: Anorexia, Chills, Malaise, Weakness, Fatigue. Denies: Fever, Weight Change HEENT: Reports: Nasal Congestion, Post Nasal Drip, Sinus Congestion, Sinus Drainage. Denies: Head Aches Cardiovascular: Denies: Chest Pain, Palpitations Respiratory: Denies: Cough, Shortness of breath at rest, Sputum production Gastrointestinal: Reports: Abdominal Pain, Nausea, Vomiting - Dry heaves. Genitourinary: Denies: Dysuria Musculoskeletal: Reports: Back Pain, Joint Pain, Muscle pain. Denies: Joint Tenderness Skin: Reports: Skin Changes. Denies: Rash, Wounds Neurological: Denies: Numbness, Tingling, Focal weakness Psychiatric: Reports: Anxiety, Depression. Denies: Homicidal Ideations, Suicidal Ideations Hematologic/ Lymphatic: Denies: Easy Bruising, Easy Bleeding VTE Information - Inpt Only VTE Present on Admission: No VTE Mechan Device Prophylaxis: None VTE Pharm Prophylaxis ordered?: No Reason prophylaxis not ordered:: Treatment Not Indicated Subjective: Seated upright, restless, shifting the chair, fatigued appearance. Objective: Physical Examination: General: awake, alert, oriented x 3 and cooperative, seated upright, fatigued appearance, restless, anxious appearing. Skin: normal color, turgor, no icterus, cyanosis except various track salazar, most recently to the right neck region, noninfected appearing. HEENT: AT/NC, EOMI, PERRLA, dry MM, no carotid bruits or JVD noted. Lungs: CTA bilaterally, moderate effort, mild decrease BL bases, no rales, ronchi or wheezing. Heart: Mildly tachycardic with regular rhythm; no gallop, rub audible. Abdomen: soft, mild generalized discomfort with palpation, ND, normal BS, + HM. Extremities: no cyanosis, clubbing, or edema. Neurological: patient awake, alert, oriented x 3; cognitive function intact; pupils equally reactive to light and accomodation; cranial nerves II-XII grossly normal, moving all 4 extremities, no focal deficits, strength mildly to moderately globally decreased secondary to acute presentation. Psychiatric: affect appears mildly agitated, anxious, restless, no acute evidence of depressive feelings. - Physical Exam Body Mass Index (BMI) 24.2 Assessment/Plan All Active Problems Opiate withdrawal (Acute) The patient is a 33 y/o M w/ PMHx: Anxiety and Depression, Known Hepatitis B and C, History of MRSA, Heroin IVDA (usual 2 gm daily, last usage 06/23/18 2:00 am, 3/4 gm usage) who presents to the [facility] at [facility] on 06/24/18 w/ noted opiate withdrawal. (1) Acute Opiate Withdrawal: Will admit to [facility], obtain routine labs including CBC, CMP, urine for drug screen, urinalysis, serum lipase, routine EKG and will initiate and continue on [facility] service protocol with tapering course of Subutex, as needed Seroquel, Librium, Sinemet, Catapres, Bentyl, Vistaril, IV fluids, IV antiemetics, Tylenol as needed for pain. Once patient clinically improved and completion of taper nearing will plan [facility] assistance for transition to next level of rehabilitation care. (2) Polysubstance Abuse, IVDA Hx, History of Hepatitis C and B, Chronic: Denies HIV history, amenable to testing, HIV pending. Patient currently not candidate for hep C treatment currently as needs to be clean, sober x 6 months, documented attendance NA or AA meetings, counseling and ongoing negative drug screens. Once appropriate GI, ID to initiate. Encouraged PCP establishment and follow-up. (3) Anxiety and Depression: Patient was also heroin user, secondary to OD and he was using with her at that time and brought her into ED. Notable anxiety and depression, discussed would benefit from counseling associated w/ his drug treatment. (4) DVT Prophylaxis: Low risk, ambulation. Code Visit Inpatient E&M: 17737 Init Hosp L3
[2018-06-24 16:31] VITALS: BMI 26.4
[2018-06-24 16:34] VITALS: BMI 26.4
[2018-06-24 16:45] VITALS: BP 128/80; PULSE 69; RESP 16; TEMP 36.9
[2018-06-24 17:05] LABS: Absolute Lymphocyte Count 2.09 X10^3/ul (0.83-4.51); Absolute Neutrophil Count 3.1 X10^3/uL (2.0-7.7); Basophil# 0.04 X10^3/uL; Basophil% 0.7 % (0-1); Eosinophil# 0.34 X10^3/uL; Eosinophils% 5.7 % (0-5); Hematocrit 39.4 % (40-54); Hemoglobin 13.1 g/dl (13.0-16.5); Lymphocyte # 2.09 X10^3/ul (4.0); Lymphocyte % 35.1 % (19-41); Mean Corp Hgb Conc 33.2 g/gl (32-36); Mean Corpuscular Hgb 29.9 pg (27.0-32.0); Mean Platelet Vol. 10.4 fl (6.2-12.0); Monocyte# 0.39 X10^3/uL; Monocyte% 6.5 % (0-10); Neutrophil # 3.08 X10^3/uL (2.7-7.7); Neutrophil % 51.7 % (47-70); Platelet Count 226 K/mm3 (150-450); RBC Distribution Width CV 12.4 % (11.6-14.6); RBC Distribution Width SD 39.9 fl (35.1-43.9); Red Blood Count 4.38 M/mm3 (4.6-6.2)
[2018-06-24] MEDS: cloNIDine HCl 0.1 MG Tablet PO (17:07)
[2018-06-24] MEDS: Acetaminophen 500 MG Tablet PO (17:07)
[2018-06-24] MEDS: Buprenorphine HCl 2 MG TAB.SUBL SL ×2 (17:07→23:29)
[2018-06-24] MEDS: Methocarbamol 750 MG Tablet PO (17:07)
[2018-06-24] MEDS: chlordiazePOXIDE 25 MG Capsule PO (17:07)
[2018-06-24 17:08] LABS: POSITIVE COUNT NO; POSITIVE DIFFERENTIAL NO; POSITIVE MORPHOLOGY NO
[2018-06-24 17:17] LABS: ALB/GLOB Ratio 1.1 RATIO (0.9-2.4); AST(SGOT) 44 U/L (15-37); Alanine Aminotransfer ALT/SGPT 71 U/L (16-61); Albumin, Serum 3.9 g/dL (3.2-5.0); Alkaline Phosphatase 87 U/L (45-117); Anion Gap 6 (5-15); BUN 15 mg/dL (7-18); BUN/Creat Ratio 19.8 RATIO (10-20); Calcium,Total 8.4 mg/dL (8.5-10.1); Chloride 104 mmol/L (98-107); Creatinine, Serum 0.76 mg/dL (0.70-1.30); EST Glomerular Filtration Rate 124 mL/min (>60); Est Glom Filt Rate - Afr Amer 150 mL/min (>60); Estimated Creatinine Clearance 157.73 ml/min; Globulin 3.6 g/dL (2.2-4.2); Glucose 82 mg/dL (74-106); Protein, Total 7.5 g/dL (6.4-8.2); Sodium Level 140 mmol/L (136-145)
[2018-06-24 17:39] LABS: Alcohol, Blood (Medical)-Serum < 3.0 mg/dL
[2018-06-24 17:47] LABS: Amphetamine Urine VISTA NEGATIVE (<1000 ng/mL); Barbiturate Urine VISTA NEGATIVE (< 200 ng/mL); Benzodiazepine Urine VISTA POSITIVE (< 200 ng/mL); Cocaine Urine VISTA NEGATIVE (< 300 ng/mL); Ecstacy Urine VISTA NEGATIVE (< 500 ng/mL); Methadone Urine VISTA NEGATIVE (< 300 ng/mL); PCP Urine VISTA NEGATIVE (< 25 ng/mL); THC Urine VISTA POSITIVE (< 50 ng/mL); Vista UDS pH Range 7
[2018-06-24 18:05] LABS: HIV - WCH Non-Reactive (Nonreactive)
[2018-06-24 23:26] VITALS: BP 116/73; PULSE 59; RESP 14; TEMP 36.2
[2018-06-24] MEDS: traZODone 50 MG Tablet PO (23:28)
[2018-06-25] VITALS (8 sets, daily range): BP systolic 104–130; BP diastolic 69–81; PULSE 53–73; RESP 16–20; TEMP 36.3–37; O2SAT 93–100
[2018-06-25] MEDS: Methocarbamol 750 MG Tablet PO (04:09)
[2018-06-25] MEDS: chlordiazePOXIDE 25 MG Capsule PO ×2 (04:09→23:10)
[2018-06-25] MEDS: Pramipexole Di-HCl 0.25 MG Tablet PO ×2 (04:09→23:10)
[2018-06-25] MEDS: Ondansetron ODT 4 MG Tablet PO ×2 (04:09→19:53)
--- NOTE | 2018-06-25 08:51 | PCM.PROGNOTE ---
Subjective: Chief complaint: Follow-up after admission for acute opiate withdrawal. Patient seen and examined. No acute events overnight. He is still symptomatic, complaining of anxiety and restlessness as well as tremors. Vital signs are stable. - Physical Exam General: Alert, Oriented x3, Cooperative, No apparent distress HEENT: Atraumatic, PERRLA, EOMI, Normocephalic Oral: Moist Mucosa, No Gingival or Mucosal Lesions/ Ulcerations Neck: Supple, No JVD, Negative Carotid Bruits, Trachea Midline, Thyroid Normal Size and Texture Lungs: Clear to auscultation, Normal air movement, No rhonchi, No wheeze, No rales Cardiovascular: Regular rate, Regular Rhythm, Normal S1, Normal S2, PMI Normal Abdomen: Bowel Sounds Present, Soft, Non Tender, Non-Distended, No Hepato-splenomegaly Extremities: No clubbing, No cyanosis, No edema Skin: No rashes, No breakdown Lymphatic: No Cervical, Supraclavicular, or Inguinal Adenopathy Neurological: Cranial nerves II-XII grossly intact, Neuro grossly intact Psych/Mental Status: Normal Affect, Appropriate, Alert and oriented to time, place, person, mood and affect Vital Signs Temp Pulse Resp BP 98.2 F 53 L 16 109/69 06/25/18 04:12 06/25/18 04:12 06/25/18 04:12 06/25/18 04:12 Weight: 205 lb 8 oz Body Mass Index (BMI) 26.4 Intake and Output for Last 24 Hours 06/23/18 06/24/18 06/25/18 23:59 23:59 23:59 Intake Total 240 / 240 Balance 240 / 240 Laboratory Tests Past 24 Hrs 06/24/18 06/24/18 06/24/18 16:42 16:42 16:42 WBC 6.0 RBC 4.38 L Hgb 13.1 Hct 39.4 L MCV 90.0 MCH 29.9 MCHC 33.2 RDW 12.4 RDW Differential 39.9 Plt Count 226 MPV 10.4 Immature Gran % (Auto) 0.300 Neut % (Auto) 51.7 Lymph % (Auto) 35.1 [place] % (Auto) 6.5 Eos % (Auto) 5.7 H Baso % (Auto) 0.7 Absolute Neuts (auto) 3.1 Absolute Lymphs (auto) 2.09 Total Counted Not Reportable Sodium 140 Potassium 4.0 Chloride 104 Carbon Dioxide 30.0 Anion Gap 6 BUN 15 Creatinine 0.76 Estim Creat Clear Calc 157.73 Est GFR (MDRD) Af Amer 150 Est GFR (MDRD) Non-Af 124 BUN/Creatinine Ratio 19.8 Glucose 82 Calcium 8.4 L Total Bilirubin 0.40 AST 44 H ALT 71 H Alkaline Phosphatase 87 Total Protein 7.5 Albumin 3.9 Globulin 3.6 Albumin/Globulin Ratio 1.1 Urine Opiates Screen Urine Methadone Screen Ur Barbiturates Screen Ur Phencyclidine Scrn Ur Amphetamines Screen U Methamphetamin-MDMA U Benzodiazepines Scrn Urine Cocaine Screen U Cannabinoids Screen Ur Drug Screen Comment Ethyl Alcohol < 3.0 HIV 1&2 Antibody 06/24/18 06/24/18 16:42 17:10 WBC RBC Hgb Hct MCV MCH MCHC RDW RDW Differential Plt Count MPV Immature Gran % (Auto) Neut % (Auto) Lymph % (Auto) [place] % (Auto) Eos % (Auto) Baso % (Auto) Absolute Neuts (auto) Absolute Lymphs (auto) Total Counted Sodium Potassium Chloride Carbon Dioxide Anion Gap BUN Creatinine Estim Creat Clear Calc Est GFR (MDRD) Af Amer Est GFR (MDRD) Non-Af BUN/Creatinine Ratio Glucose Calcium Total Bilirubin AST ALT Alkaline Phosphatase Total Protein Albumin Globulin Albumin/Globulin Ratio Urine Opiates Screen POSITIVE H Urine Methadone Screen NEGATIVE Ur Barbiturates Screen NEGATIVE Ur Phencyclidine Scrn NEGATIVE Ur Amphetamines Screen NEGATIVE U Methamphetamin-MDMA NEGATIVE U Benzodiazepines Scrn POSITIVE H Urine Cocaine Screen NEGATIVE U Cannabinoids Screen POSITIVE H Ur Drug Screen Comment Ethyl Alcohol HIV 1&2 Antibody Non-Reactive Medical Necessity - Tobacco Use Smoking Status: Never smoker Tobacco Use: Non-smoker Assessment/Plan All Active Problems Opiate withdrawal (Acute) This is a 33 years old male patient presented to the [facility] office requesting admission for acute opioid withdrawal for medical stabilization. #1 acute opiate withdrawal: He is on [facility] protocol with tapering course of Subutex, PRN Librium, Catapres, Bentyl, Vistaril, Imodium, methocarbamol, Zofran and Mirapex. His routine blood work was unremarkable. Liver transaminases are minimally elevated. Urine drug screen was positive for opioids, benzodiazepines and cannabinoids. Blood alcohol level was less then 3. His vital signs are stable. He is still symptomatic, minimal improvement. Plan to continue same treatment. #2 polysubstance abuse/history of IV drug use?history of hepatitis B and C/chronic: Never been treated for hepatitis in the past. Serology for HIV 1 and 2 antibodies were negative. Recommend referral to infectious disease as outpatient for treatment of chronic hepatitis. #3 anxiety/depression: Patient's because of overdose. Reportedly, patient has an existing depression. At this time, he is not on any treatment. Recommend counseling as outpatient with drug abuse treatment. #4 DVT prophylaxis: Low risk patient, no prophylaxis indicated. This note was generated with [employer] dictation software. It may contain incorrect words, spelling, and punctuation that were not noted in checking the note before signing. Code Visit Inpatient E&M: 70120 Subs Hosp L2
[2018-06-25] MEDS: Buprenorphine HCl 2 MG TAB.SUBL SL ×2 (08:53→16:43)
[2018-06-25] MEDS: proMETHazine 25 MG/ML Syringe 6.25 MG IM (22:54)
[2018-06-25] MEDS: Dicyclomine 10 MG Capsule 20 MG PO (23:10)
[2018-06-26] VITALS (9 sets, daily range): BP systolic 113–131; BP diastolic 66–85; PULSE 72–83; RESP 18–20; TEMP 36.6–37.1; O2SAT 97–100
[2018-06-26] MEDS: Buprenorphine HCl 2 MG TAB.SUBL SL ×3 (00:46→20:26)
[2018-06-26] MEDS: Ondansetron ODT 4 MG Tablet PO ×2 (04:27→18:34)
[2018-06-26] MEDS: hydrOXYzine PAM 25 MG Capsule 50 MG PO ×2 (04:32→18:34)
[2018-06-26] MEDS: Loperamide 2 MG Capsule PO (04:32)
--- NOTE | 2018-06-26 07:50 | PCM.PROGNOTE ---
Subjective: Chief complaint: Follow-up after admission for acute opiate withdrawal. Patient seen and examined. No acute events overnight. He is still complaining of anxiety, restlessness, not able to sleep comfortably. He denies any more diarrhea, denies abdominal pain. His vital signs are stable. - Physical Exam General: Alert, Oriented x3, Cooperative, No apparent distress HEENT: Atraumatic, PERRLA, EOMI, Normocephalic Oral: Moist Mucosa, No Gingival or Mucosal Lesions/ Ulcerations Neck: Supple, No JVD, Negative Carotid Bruits, Trachea Midline, Thyroid Normal Size and Texture Lungs: Clear to auscultation, Normal air movement, No rhonchi, No wheeze, No rales Cardiovascular: Regular rate, Regular Rhythm, Normal S1, Normal S2, PMI Normal Abdomen: Bowel Sounds Present, Soft, Non Tender, Non-Distended, No Hepato-splenomegaly Extremities: No clubbing, No cyanosis, No edema Skin: No rashes, No breakdown Lymphatic: No Cervical, Supraclavicular, or Inguinal Adenopathy Neurological: Cranial nerves II-XII grossly intact, Neuro grossly intact Psych/Mental Status: Normal Affect, Appropriate, Alert and oriented to time, place, person, mood and affect Vital Signs Temp Pulse Resp BP Pulse Ox 97.8 F 80 18 122/85 H 100 06/26/18 04:24 06/26/18 04:24 06/26/18 04:24 06/26/18 04:24 06/26/18 04:22 Oxygen Delivery Method Room Air Weight: 205 lb 8 oz Body Mass Index (BMI) 26.4 Intake and Output for Last 24 Hours 06/24/18 06/25/18 06/26/18 23:59 23:59 23:59 Intake Total 240 / 240 480 / 480 300 / 300 Output Total 300 / 300 Balance 240 / 240 480 / 480 0 / 0 Medical Necessity - Tobacco Use Smoking Status: Never smoker Tobacco Use: Non-smoker Assessment/Plan All Active Problems Opiate withdrawal (Acute) This is a 33 years old male patient presented to the [facility] office requesting admission for acute opioid withdrawal for medical stabilization. #1 acute opiate withdrawal: Remained on [facility] protocol with tapering course of Subutex, PRN Librium, Catapres, Bentyl, Vistaril, Imodium, methocarbamol, Zofran and Mirapex. He is still symptomatic, minimal to no improvement. Plan to continue same treatment. His routine blood work was unremarkable. Liver transaminases are minimally elevated. Urine drug screen was positive for opioids, benzodiazepines and cannabinoids. Blood alcohol level was less then 3. His vital signs are stable. #2 polysubstance abuse/history of IV drug use?history of hepatitis B and C/chronic: Never been treated for hepatitis in the past. Serology for HIV 1 and 2 antibodies were negative. Recommend referral to infectious disease as outpatient for treatment of chronic hepatitis. #3 anxiety/depression: Patient's because of overdose. Reportedly, patient had an anxiety and depression. At this time, he is not on any treatment. Recommend counseling as outpatient with drug abuse treatment. #4 DVT prophylaxis: Low risk patient, no prophylaxis indicated. This note was generated with [employer] dictation software. It may contain incorrect words, spelling, and punctuation that were not noted in checking the note before signing. Code Visit Inpatient E&M: 56651 Subs Hosp L2
[2018-06-27 04:18] VITALS: BP 119/72; PULSE 82; RESP 18; TEMP 36.9
[2018-06-27 08:05] VITALS: BP 130/77; PULSE 80; RESP 16; TEMP 36.9; O2SAT 96
[2018-06-27] MEDS: Buprenorphine HCl 2 MG TAB.SUBL SL (08:08)
[2018-06-27] MEDS: Loperamide 2 MG Capsule PO (08:10)
[2018-06-27] MEDS: chlordiazePOXIDE 25 MG Capsule PO (08:10)
[2018-06-27 08:14] VITALS: BP 130/77; PULSE 80; RESP 16; TEMP 36.9
--- NOTE | 2018-06-27 09:39 | DCINST_ITS ---
- Discharge Diagnoses Reason(s) for Visit for Discharge Instructions: Acute opiate withdrawal You will use the following diet at home:: Regular Your food should be the consistency of: Regular Your liquids should be the consistency of: Regular/Thin Discharge Activity: Return to Normal Activity Additional Instructions: You are advised to abstain from use of heroin. Continue with your outpatient treatment as scheduled. Allergies/Adverse Reactions: Allergies codeine Allergy (Verified 09/24/17 17:02) Hives Medications to take at Discharge No Known/Unobtainable [No Known Home Medications] 09/14/16 Primary Care Physician: Care Physician,No Primary [Primary Care Provider] - Please follow up with your Primary Care Physician in: within 1-2 weeks Test Results: Test results from this visit will be discussed in further detail at your follow- up appointment, if applicable. Proposed Discharge Date: 06/27/18
--- NOTE | 2018-06-27 09:39 | PCM.DC.SUM ---
Discharge Date and Diagnosis Date of Admission: 06/24/18 Date of Discharge: 06/27/18 - Primary Discharge Diagnosis Acute opiate withdrawal Polysubstance abuse Anxiety/depression - Secondary Discharge Diagnosis Chronic Problems Marijuana abuse (Chronic) Cocaine abuse (Chronic) Depression (Chronic) Anxiety (Chronic) Hepatitis B (Chronic) Hepatitis C (Chronic) Heroin abuse (Chronic) Hospital Course and Treatment None Operations: None Procedures: None Summary of Care Provided: The patient is a 33 year old M with past medical history of polysubstance use, chronic hepatitis B and C, comes in for medical stabilization for acute opiate withdrawal. Patient was seen and admitted under the [facility] protocol. He continued to remain stable. His urine drug screen was positive for opiates, benzos and cannabinoids. His blood alcohol level is less than 3. There was no acute events in this patient stay. He was discharged to continue with intensive outpatient follow-up. Subjective: On the day of discharge, patient was seen and examined. Denied any new complaints. Feels improved. Objective: Physical Exam General: Alert, Oriented x3, Cooperative, No apparent distress HEENT: Atraumatic, PERRLA, EOMI, Normocephalic Oral: Moist Mucosa, No Gingival or Mucosal Lesions/ Ulcerations Neck: Supple, No JVD, Negative Carotid Bruits, Trachea Midline, Thyroid Normal Size and Texture Lungs: Clear to auscultation, Normal air movement, No rhonchi, No wheeze, No rales Cardiovascular: Regular rate, Regular Rhythm, Normal S1, Normal S2, PMI Normal Abdomen: Bowel Sounds Present, Soft, Non Tender, Non-Distended, No Hepato-splenomegaly Extremities: No clubbing, No cyanosis, No edema Skin: No rashes, No breakdown Lymphatic: No Cervical, Supraclavicular, or Inguinal Adenopathy Neurological: Cranial nerves II-XII grossly intact, Neuro grossly intact Psych/Mental Status: Normal Affect, Appropriate, Alert and oriented to time, place, person, mood and affect - Physical Exam Vital Signs Temp Pulse Resp BP Pulse Ox 98.4 F 80 16 130/77 H 96 06/27/18 08:14 06/27/18 08:14 06/27/18 08:14 06/27/18 08:14 06/27/18 08:05 Oxygen Delivery Method Room Air Weight: 93.213 kg Body Mass Index (BMI) 26.4 Intake and Output for Last 24 Hours 06/25/18 06/26/18 06/27/18 23:59 23:59 23:59 Intake Total 480 / 480 1398 / 1398 600 / 600 Output Total 300 / 300 Balance 480 / 480 1098 / 1098 600 / 600 Discharge Diet: No Restrictions Discharge Activity: Return to Normal Activity Home Medications: Medications to take at Discharge No Known/Unobtainable [No Known Home Medications] 09/14/16 Primary Care Physician: Care Physician,No Primary [Primary Care Provider] - Please follow up with your Primary Care Physician in: within 1-2 weeks Disposition: Home Minutes spent on discharge:: 25 Patient Condition:: Stable Medical Necessity - Tobacco Use Smoking Status: Never smoker Tobacco Use: Non-smoker Meaningful Use Info Meaningful Use Diagnoses (Choose all that apply): None applicable Code Visit Inpatient E&M: 32281 Disch Hosp
--- NOTE | 2018-06-27 10:04 | NEWVISION ---
[facility] provided referral to [facility] in [place] for an assessment for AOD counseling/IOP post discharge 06/27/2018.
== END 2018-06-27 09:45 | disposition home or self-care (01) | DRG 773 ==
PROVIDERS: Admitting Provider Family Medicine; Referring Provider Family Medicine; Visit Provider Internal Medicine
DX: F11.23 Opioid dependence with withdrawal (principal); Z86.14 Personal history of Methicillin resistant Staphylococcus aureus infection; B18.1 Chronic viral hepatitis B without delta-agent; B18.2 Chronic viral hepatitis C; F12.10 Cannabis abuse, uncomplicated; F14.10 Cocaine abuse, uncomplicated; F32.9 Major depressive disorder, single episode, unspecified; F41.9 Anxiety disorder, unspecified
CPT/HCPCS: 36415; 80053; 80307; 80320; 85025; 86703; 96372; 99218; G0378; G0379; G0480